=== PATIENT | female | born 1950 | race Caucasian/White ===

== ENCOUNTER 2021-05-10 16:52 | Inpatient (IN) | payer MEDICARE, MEDICAID, SELFPAY ==
--- NOTE | 2021-05-10 16:59 | ED.PSYCH ---
HPI - Psych General Chief Complaint: Psychiatric Symptoms <Fabio Peralta MD - Last Filed: 05/10/21 20:52> Stated Complaint: SECCTION 14 (AGE UNKNOWN) <Fabio Peralta MD - Last Filed: 05/10/21 20:52> Time Seen by Provider: 05/10/21 16:58 <Fabio Peralta MD - Last Filed: 05/10/21 20:52> Source: patient <aFbio Peralta MD - Last Filed: 05/10/21 20:52> Mode of arrival: EMS <Fabio Peralta MD - Last Filed: 05/10/21 20:52> Limitations: no limitations <Fabio Peralta MD - Last Filed: 05/10/21 20:52> History of Present Illness HPI Narrative: suicidal with a plan to throw herself off of a bridge. Patient states that she is itchy and scrathching and cant sleep so she is thinking about suicide. She feels like her isolation got worse and this has caused her to itch. She is not sleeping. She had be on paxil but it did not work. <Fabio Peralta MD - Last Filed: 05/10/21 20:52> MD complaint: suicidal ideation <Fabio Peralta MD - Last Filed: 05/10/21 20:52> Onset (ago): year(s) <Fabio Peralta MD - Last Filed: 05/10/21 20:52> Duration: constant <Fabio Peralta MD - Last Filed: 05/10/21 20:52> History of same: Yes <Fabio Peralta MD - Last Filed: 05/10/21 20:52> Relieving factors: none <Fabio Peralta MD - Last Filed: 05/10/21 20:52> Exacerbating factors: none <Fabio Peralta MD - Last Filed: 05/10/21 20:52> Associated psychiatric symptoms: depression and other (anxiety) <Fabio Peralta MD - Last Filed: 05/10/21 20:52> Associated symptoms: other (itching) <Fabio Peralta MD - Last Filed: 05/10/21 20:52> Related Data Home Medications: Home Medications Medication Instructions Recorded Confirmed doxepin 50 mg capsule 1 cap PO BEDTIME 05/10/21 05/10/21 fluticasone propionate 50 2 spray INTRANASAL DAILY 05/10/21 05/10/21 mcg/actuation nasal spray,suspension omeprazole 20 mg capsule,delayed 1 cap PO QPM 05/10/21 05/10/21 release <Fabio Peralta MD - Last Filed: 05/10/21 20:52> Allergies/Adverse Reactions: Allergies Allergy/AdvReac Type Severity Reaction Status Date / Time [id number] Reductase AdvReac Muscle Verified 05/10/21 18:31 Inhibitor cramps <Fabio Peralta MD - Last Filed: 05/10/21 20:52> Review of Systems Constitutional: Constitutional: Reports no additional constitutional complaints <Fabio Peralta MD - Last Filed: 05/10/21 20:52> Eyes: Eyes: Reports no additional eye complaints <Fabio Peralta MD - Last Filed: 05/10/21 20:52> ENT: Denies dizziness <Fabio Peralta MD - Last Filed: 05/10/21 20:52> Cardiovascular: Cardiovascular: Reports no additional cardiovascular complaints <Fabio Peralta MD - Last Filed: 05/10/21 20:52> Respiratory: Respiratory: Reports as per HPI <Fabio Peralta MD - Last Filed: 05/10/21 20:52> Gastrointestinal: Gastrointestinal: Reports no additional gastrointestinal complaints <Fabio Peralta MD - Last Filed: 05/10/21 20:52> Genitourinary: Genitourinary: Reports no additional female genitourinary complaints <Fabio Peralta MD - Last Filed: 05/10/21 20:52> Musculoskeletal: Musculoskeletal: Reports no additional musculoskeletal complaints <Fabio Peralta MD - Last Filed: 05/10/21 20:52> Integumentary/Breasts: Skin/Breast: Denies rash <Fabio Peralta MD - Last Filed: 05/10/21 20:52> Neurologic: Reports system reviewed and no additional complaints, except as documented, Denies dizziness and Denies Sensory deficit (Neuro) <Fabio Peralta MD - Last Filed: 05/10/21 20:52> Psychiatric: Psychiatric: Denies anxiety <Fabio Peralta MD - Last Filed: 05/10/21 20:52> [facility] Past Medical History Medical History: Medical History (Updated 05/11/21 @ 09:38 by PETRONA Borges) Arthritis Depression GERD (gastroesophageal reflux disease) <Fabio Peralta MD - Last Filed: 05/10/21 20:52> Social History Social History: Social History Advance Directives: No Advance Directives Information Provided: No Healthcare Proxy: No Guardian: No <Fabio Peralta MD - Last Filed: 05/10/21 20:52> Physical Exam Vital Signs: Vital Signs: Last Vital Signs Temp 98.1 F 05/11/21 06:34 Pulse 84 05/11/21 06:34 Resp 16 05/11/21 06:34 BP 140/80 H 05/11/21 06:34 Pulse Ox 100 05/11/21 06:34 BMI result Body Mass Index 26.5 <Faibo Peralta MD - Last Filed: 05/10/21 20:52> Vital Signs: Last Vital Signs Temp 98.1 F 05/11/21 06:34 Pulse 84 05/11/21 06:34 Resp 16 05/11/21 06:34 BP 140/80 H 05/11/21 06:34 Pulse Ox 100 05/11/21 06:34 BMI result Body Mass Index 26.5 <PETRONA Sanford - Last Filed: 05/10/21 21:56> Vital Signs: Last Vital Signs Temp 98.1 F 05/11/21 06:34 Pulse 84 05/11/21 06:34 Resp 16 05/11/21 06:34 BP 140/80 H 05/11/21 06:34 Pulse Ox 100 05/11/21 06:34 BMI result Body Mass Index 26.5 <PETRONA Borges - Last Filed: 05/11/21 09:38> Const: Other: elderly female anxious and hyperactive <Fabio Peralta MD - Last Filed: 05/10/21 20:52> Nutritional Appearance: average body habitus <Fabio Peralta MD - Last Filed: 05/10/21 20:52> Orientation/consciousness: oriented to person and patient oriented x3 <Fabio Peralta MD - Last Filed: 05/10/21 20:52> Limitations: no limitations <Fabio Peralta MD - Last Filed: 05/10/21 20:52> HEENT: Head: Yes normal to inspection <Fabio Peralta MD - Last Filed: 05/10/21 20:52> Ears: external ears normal <Fabio Peralta MD - Last Filed: 05/10/21 20:52> General nose exam: Normal external nose present <Fabio Peralta MD - Last Filed: 05/10/21 20:52> Mouth: Normal oral and palatal mucosa present and oropharynx normal <Fabio Peralta MD - Last Filed: 05/10/21 20:52> Throat: Yes posterior oropharynx normal <Fabio Peralta MD - Last Filed: 05/10/21 20:52> Eyes: General: appearance normal, both eyes and all related structures <Fabio Peralta MD - Last Filed: 05/10/21 20:52> Neck: Other: supple <Fabio Peralta MD - Last Filed: 05/10/21 20:52> Neck: Yes normal visual inspection <Fabio Peralta MD - Last Filed: 05/10/21 20:52> Chest: Chest palpation & inspection: normal inspection of the chest <Fabio Peralta MD - Last Filed: 05/10/21 20:52> Resp: Auscultation: clear to auscultation bilaterally <Fabio Peralta MD - Last Filed: 05/10/21 20:52> Cardio: Jugular venous distension: no JVD <Fabio Peralta MD - Last Filed: 05/10/21 20:52> Rate: regular rate <Fabio Peralta MD - Last Filed: 05/10/21 20:52> Rhythm: regular rhythm <Fabio Peralta MD - Last Filed: 05/10/21 20:52> Heart sounds: S1 normal heart sound present and S2 normal heart sound present <Fabio Peralta MD - Last Filed: 05/10/21 20:52> GI: Inspection: Yes normal to inspection <Fabio Peralta MD - Last Filed: 05/10/21 20:52> Palpation (GI): Soft to palpation, nontender and No hepatosplenomegaly present <Fabio Peralta MD - Last Filed: 05/10/21 20:52> Auscultation: normal bowel sounds <Fabio ePralta MD - Last Filed: 05/10/21 20:52> : General: Yes no CVA tenderness <Fabio Peralta MD - Last Filed: 05/10/21 20:52> Back/Spine/Pelvis: Back: no CVA tenderness <Fabio Peralta MD - Last Filed: 05/10/21 20:52> Skin: General skin exam: no rashes or lesions noted <Fabio Peralta MD - Last Filed: 05/10/21 20:52> Neuro: General: oriented to person and patient oriented x3 <Fabio Peralta MD - Last Filed: 05/10/21 20:52> Cranial nerves: Yes CN's II-XII intact bilaterally <Fabio Peralta MD - Last Filed: 05/10/21 20:52> Motor exam (neuro): 5/5 motor strength present throughout <Fabio Peralta MD - Last Filed: 05/10/21 20:52> Sensory Exam: No Sensory deficit (Neuro) <Fabio Peralta MD - Last Filed: 05/10/21 20:52> Extrem: General: Yes normal to inspection <Fabio Peralta MD - Last Filed: 05/10/21 20:52> Psych: Other: anxious, pressured speech <Fabio Peralta MD - Last Filed: 05/10/21 20:52> Course Reevaluation(s) Reevaluation #1: Patient placed in physician observation at 8:50pm The indication for observation is that the patient needs more time to see if her depression improves or she will need to be admitted. At this time the patient is well developed well nourished, lungs clear, CV RRR, abd nontender, neuro is intact <Fabio Peralta MD - Last Filed: 05/10/21 20:52> Time: 20:52 <Fabio Peralta MD - Last Filed: 05/10/21 20:52> Reevaluation #2: S1 tomorrow. <PETRONA Sanford - Last Filed: 05/10/21 21:56> Reevaluation #3: Physician observation continued. No overnight events. Vital signs remained stable. Home meds reordered. Plan for admission for S1 today. Calm and cooperative. reporting tactile hallucinations yesterday, now improved after low dose zyprexa. Will continue to monitor. <PETRONA Borges - Last Filed: 05/11/21 09:38> Time: 09:33 <PETRONA Borges - Last Filed: 05/11/21 09:38> MDM - Psych Lab Data Result diagrams: : 05/10/21 19:11 05/10/21 17:30 <Fabio Peralta MD - Last Filed: 05/10/21 20:52> Labs: Lab Results 05/10/21 05/10/21 05/10/21 Range/Units 17:09 17:16 17:30 WBC (4.8-10.8) X10*3/uL RBC (4.20-5.50) X10*6/uL Hgb (12.0-16.0) g/dl Hct (37.0-47.0) % MCV (80.0-98.0) fL MCH (27.0-33.0) pg MCHC (31.0-35.0) g/dl RDW (11.0-16.0) % Plt Count (160-400) X10*3/uL MPV (9.4-12.3) fL Immature Gran % (Auto) (0.0-0.4) % Neut % (Auto) (45-73) % Lymph % (Auto) (20-40) % [place] % (Auto) (2-11) % Eos % (Auto) (0-4) % Baso % (Auto) (0-2) % Lymph # (Auto) (1.2-4.9) X10*3/uL [place] # (Auto) (0.1-1.2) X10*3/uL Eos # (Auto) (0.0-0.4) X10*3/uL Baso # (Auto) (0.0-0.2) X10*3/uL Abs Immat Gran (auto) (0.00-0.03) X10*3/uL Absolute Neuts (auto) (2.0-8.3) x10*3/uL Absolute Nucleated RBC (0.0-0.012) X10*3/uL Nucleated RBC % (auto) (0.0-0.2) /100WBC Sodium 138 (135-145) mmol/L Potassium 3.9 (3.3-5.1) mmol/L Chloride 106 (96-108) mmol/L Carbon Dioxide 21 L (22-29) mmol/L Anion Gap 15 (12-20) BUN 11 (9-16) mg/dL Creatinine 0.95 (0.5-1.4) mg/dL Estim Creat Clear Calc 52.4 Estimated GFR 58 Random Glucose 78 (60-115) mg/dL Calcium 10.2 (8.4-10.2) mg/dL Total Bilirubin 0.5 (0.0-1.0) mg/dL AST 15 (5-31) U/L ALT 16 (0-31) U/L Alkaline Phosphatase 63 (39-117) U/L Total Protein 8.1 H (6.5-8.0) g/dL Albumin 4.6 (3.5-5.0) g/dL Urine Color Urine Appearance Urine pH (5.0-8.0) Ur Specific [place] (1.005-1.025) Urine Protein (NEG-TRACE) MG/DL Urine Glucose (UA) (NEG) MG/DL Urine Ketones (NEG) MG/DL Urine Blood (NEG) Urine Nitrite (NEG) Ur Leukocyte Esterase (NEG) Urine RBC (0) /HPF Urine WBC (0-4) /HPF Ur Squamous Epith Cells /LPF Urine Bacteria /LPF Salicylates < 5.0 L (15-30) mg/dL Urine Opiates Screen Not Detected (Not Detect) Urine Fentanyl Screen Not Detected (Not Detect) Acetaminophen < 1 (<30) mcg/mL Ur Barbiturates Screen Not Detected (Not Detect) Ur Phencyclidine Scrn Not Detected (Not Detect) Ur Amphetamines Screen Not Detected (Not Detect) U Benzodiazepines Scrn Not Detected (Not Detect) Urine Cocaine Screen Not Detected (Not Detect) U Marijuana (THC) Screen Not Detected (Not Detect) Ethyl Alcohol mg/dL COVID-19 ([facility]) Negative (Negative) COVID-19 Clin Com See Note 05/10/21 05/10/21 05/10/21 Range/Units 17:30 19:11 Unknown WBC 6.1 (4.8-10.8) X10*3/uL RBC 3.86 L (4.20-5.50) X10*6/uL Hgb 12.1 (12.0-16.0) g/dl Hct 35.3 L (37.0-47.0) % MCV 91.5 (80.0-98.0) fL MCH 31.3 (27.0-33.0) pg MCHC 34.3 (31.0-35.0) g/dl RDW 12.6 (11.0-16.0) % Plt Count 283 (160-400) X10*3/uL MPV 9.6 (9.4-12.3) fL Immature Gran % (Auto) 0.3 (0.0-0.4) % Neut % (Auto) 59.7 (45-73) % Lymph % (Auto) 31.9 (20-40) % [place] % (Auto) 5.8 (2-11) % Eos % (Auto) 1.5 (0-4) % Baso % (Auto) 0.8 (0-2) % Lymph # (Auto) 1.9 (1.2-4.9) X10*3/uL [place] # (Auto) 0.4 (0.1-1.2) X10*3/uL Eos # (Auto) 0.1 (0.0-0.4) X10*3/uL Baso # (Auto) 0.1 (0.0-0.2) X10*3/uL Abs Immat Gran (auto) 0.02 (0.00-0.03) X10*3/uL Absolute Neuts (auto) 3.6 (2.0-8.3) x10*3/uL Absolute Nucleated RBC 0.000 (0.0-0.012) X10*3/uL Nucleated RBC % (auto) 0.0 (0.0-0.2) /100WBC Sodium (135-145) mmol/L Potassium (3.3-5.1) mmol/L Chloride (96-108) mmol/L Carbon Dioxide (22-29) mmol/L Anion Gap (12-20) BUN (9-16) mg/dL Creatinine (0.5-1.4) mg/dL Estim Creat Clear Calc Estimated GFR Random Glucose (60-115) mg/dL Calcium (8.4-10.2) mg/dL Total Bilirubin (0.0-1.0) mg/dL AST (5-31) U/L ALT (0-31) U/L Alkaline Phosphatase (39-117) U/L Total Protein (6.5-8.0) g/dL Albumin (3.5-5.0) g/dL Urine Color STRAW Urine Appearance HAZY Urine pH 6.0 (5.0-8.0) Ur Specific [place] <= 1.005 (1.005-1.025) Urine Protein NEG (NEG-TRACE) MG/DL Urine Glucose (UA) NEG (NEG) MG/DL Urine Ketones 5 (NEG) MG/DL Urine Blood TRACE (NEG) Urine Nitrite NEG (NEG) Ur Leukocyte Esterase NEG (NEG) Urine RBC 0 (0) /HPF Urine WBC 0 (0-4) /HPF Ur Squamous Epith Cells 1+ /LPF Urine Bacteria 1+ /LPF Salicylates (15-30) mg/dL Urine Opiates Screen (Not Detect) Urine Fentanyl Screen (Not Detect) Acetaminophen (<30) mcg/mL Ur Barbiturates Screen (Not Detect) Ur Phencyclidine Scrn (Not Detect) Ur Amphetamines Screen (Not Detect) U Benzodiazepines Scrn (Not Detect) Urine Cocaine Screen (Not Detect) U Marijuana (THC) Screen (Not Detect) Ethyl Alcohol < 10 mg/dL COVID-19 ([facility]) (Negative) COVID-19 Clin Com <Fabio Peralta MD - Last Filed: 05/10/21 20:52> Lab Results 05/10/21 05/10/21 05/10/21 Range/Units 17:09 17:16 17:30 WBC (4.8-10.8) X10*3/uL RBC (4.20-5.50) X10*6/uL Hgb (12.0-16.0) g/dl Hct (37.0-47.0) % MCV (80.0-98.0) fL MCH (27.0-33.0) pg MCHC (31.0-35.0) g/dl RDW (11.0-16.0) % Plt Count (160-400) X10*3/uL MPV (9.4-12.3) fL Immature Gran % (Auto) (0.0-0.4) % Neut % (Auto) (45-73) % Lymph % (Auto) (20-40) % [place] % (Auto) (2-11) % Eos % (Auto) (0-4) % Baso % (Auto) (0-2) % Lymph # (Auto) (1.2-4.9) X10*3/uL [place] # (Auto) (0.1-1.2) X10*3/uL Eos # (Auto) (0.0-0.4) X10*3/uL Baso # (Auto) (0.0-0.2) X10*3/uL Abs Immat Gran (auto) (0.00-0.03) X10*3/uL Absolute Neuts (auto) (2.0-8.3) x10*3/uL Absolute Nucleated RBC (0.0-0.012) X10*3/uL Nucleated RBC % (auto) (0.0-0.2) /100WBC Sodium 138 (135-145) mmol/L Potassium 3.9 (3.3-5.1) mmol/L Chloride 106 (96-108) mmol/L Carbon Dioxide 21 L (22-29) mmol/L Anion Gap 15 (12-20) BUN 11 (9-16) mg/dL Creatinine 0.95 (0.5-1.4) mg/dL Estim Creat Clear Calc 52.4 Estimated GFR 58 Random Glucose 78 (60-115) mg/dL Calcium 10.2 (8.4-10.2) mg/dL Total Bilirubin 0.5 (0.0-1.0) mg/dL AST 15 (5-31) U/L ALT 16 (0-31) U/L Alkaline Phosphatase 63 (39-117) U/L Total Protein 8.1 H (6.5-8.0) g/dL Albumin 4.6 (3.5-5.0) g/dL Urine Color Urine Appearance Urine pH (5.0-8.0) Ur Specific [place] (1.005-1.025) Urine Protein (NEG-TRACE) MG/DL Urine Glucose (UA) (NEG) MG/DL Urine Ketones (NEG) MG/DL Urine Blood (NEG) Urine Nitrite (NEG) Ur Leukocyte Esterase (NEG) Urine RBC (0) /HPF Urine WBC (0-4) /HPF Ur Squamous Epith Cells /LPF Urine Bacteria /LPF Salicylates < 5.0 L (15-30) mg/dL Urine Opiates Screen Not Detected (Not Detect) Urine Fentanyl Screen Not Detected (Not Detect) Acetaminophen < 1 (<30) mcg/mL Ur Barbiturates Screen Not Detected (Not Detect) Ur Phencyclidine Scrn Not Detected (Not Detect) Ur Amphetamines Screen Not Detected (Not Detect) U Benzodiazepines Scrn Not Detected (Not Detect) Urine Cocaine Screen Not Detected (Not Detect) U Marijuana (THC) Screen Not Detected (Not Detect) Ethyl Alcohol mg/dL COVID-19 ([facility]) Negative (Negative) COVID-19 Clin Com See Note 05/10/21 05/10/21 05/10/21 Range/Units 17:30 19:11 Unknown WBC 6.1 (4.8-10.8) X10*3/uL RBC 3.86 L (4.20-5.50) X10*6/uL Hgb 12.1 (12.0-16.0) g/dl Hct 35.3 L (37.0-47.0) % MCV 91.5 (80.0-98.0) fL MCH 31.3 (27.0-33.0) pg MCHC 34.3 (31.0-35.0) g/dl RDW 12.6 (11.0-16.0) % Plt Count 283 (160-400) X10*3/uL MPV 9.6 (9.4-12.3) fL Immature Gran % (Auto) 0.3 (0.0-0.4) % Neut % (Auto) 59.7 (45-73) % Lymph % (Auto) 31.9 (20-40) % [place] % (Auto) 5.8 (2-11) % Eos % (Auto) 1.5 (0-4) % Baso % (Auto) 0.8 (0-2) % Lymph # (Auto) 1.9 (1.2-4.9) X10*3/uL [place] # (Auto) 0.4 (0.1-1.2) X10*3/uL Eos # (Auto) 0.1 (0.0-0.4) X10*3/uL Baso # (Auto) 0.1 (0.0-0.2) X10*3/uL Abs Immat Gran (auto) 0.02 (0.00-0.03) X10*3/uL Absolute Neuts (auto) 3.6 (2.0-8.3) x10*3/uL Absolute Nucleated RBC 0.000 (0.0-0.012) X10*3/uL Nucleated RBC % (auto) 0.0 (0.0-0.2) /100WBC Sodium (135-145) mmol/L Potassium (3.3-5.1) mmol/L Chloride (96-108) mmol/L Carbon Dioxide (22-29) mmol/L Anion Gap (12-20) BUN (9-16) mg/dL Creatinine (0.5-1.4) mg/dL Estim Creat Clear Calc Estimated GFR Random Glucose (60-115) mg/dL Calcium (8.4-10.2) mg/dL Total Bilirubin (0.0-1.0) mg/dL AST (5-31) U/L ALT (0-31) U/L Alkaline Phosphatase (39-117) U/L Total Protein (6.5-8.0) g/dL Albumin (3.5-5.0) g/dL Urine Color STRAW Urine Appearance HAZY Urine pH 6.0 (5.0-8.0) Ur Specific [place] <= 1.005 (1.005-1.025) Urine Protein NEG (NEG-TRACE) MG/DL Urine Glucose (UA) NEG (NEG) MG/DL Urine Ketones 5 (NEG) MG/DL Urine Blood TRACE (NEG) Urine Nitrite NEG (NEG) Ur Leukocyte Esterase NEG (NEG) Urine RBC 0 (0) /HPF Urine WBC 0 (0-4) /HPF Ur Squamous Epith Cells 1+ /LPF Urine Bacteria 1+ /LPF Salicylates (15-30) mg/dL Urine Opiates Screen (Not Detect) Urine Fentanyl Screen (Not Detect) Acetaminophen (<30) mcg/mL Ur Barbiturates Screen (Not Detect) Ur Phencyclidine Scrn (Not Detect) Ur Amphetamines Screen (Not Detect) U Benzodiazepines Scrn (Not Detect) Urine Cocaine Screen (Not Detect) U Marijuana (THC) Screen (Not Detect) Ethyl Alcohol < 10 mg/dL COVID-19 ([facility]) (Negative) COVID-19 Clin Com <PETRONA Sanford - Last Filed: 05/10/21 21:56> Lab Results 05/10/21 05/10/21 05/10/21 Range/Units 17:09 17:16 17:30 WBC (4.8-10.8) X10*3/uL RBC (4.20-5.50) X10*6/uL Hgb (12.0-16.0) g/dl Hct (37.0-47.0) % MCV (80.0-98.0) fL MCH (27.0-33.0) pg MCHC (31.0-35.0) g/dl RDW (11.0-16.0) % Plt Count (160-400) X10*3/uL MPV (9.4-12.3) fL Immature Gran % (Auto) (0.0-0.4) % Neut % (Auto) (45-73) % Lymph % (Auto) (20-40) % [place] % (Auto) (2-11) % Eos % (Auto) (0-4) % Baso % (Auto) (0-2) % Lymph # (Auto) (1.2-4.9) X10*3/uL [place] # (Auto) (0.1-1.2) X10*3/uL Eos # (Auto) (0.0-0.4) X10*3/uL Baso # (Auto) (0.0-0.2) X10*3/uL Abs Immat Gran (auto) (0.00-0.03) X10*3/uL Absolute Neuts (auto) (2.0-8.3) x10*3/uL Absolute Nucleated RBC (0.0-0.012) X10*3/uL Nucleated RBC % (auto) (0.0-0.2) /100WBC Sodium 138 (135-145) mmol/L Potassium 3.9 (3.3-5.1) mmol/L Chloride 106 (96-108) mmol/L Carbon Dioxide 21 L (22-29) mmol/L Anion Gap 15 (12-20) BUN 11 (9-16) mg/dL Creatinine 0.95 (0.5-1.4) mg/dL Estim Creat Clear Calc 52.4 Estimated GFR 58 Random Glucose 78 (60-115) mg/dL Calcium 10.2 (8.4-10.2) mg/dL Total Bilirubin 0.5 (0.0-1.0) mg/dL AST 15 (5-31) U/L ALT 16 (0-31) U/L Alkaline Phosphatase 63 (39-117) U/L Total Protein 8.1 H (6.5-8.0) g/dL Albumin 4.6 (3.5-5.0) g/dL Urine Color Urine Appearance Urine pH (5.0-8.0) Ur Specific [place] (1.005-1.025) Urine Protein (NEG-TRACE) MG/DL Urine Glucose (UA) (NEG) MG/DL Urine Ketones (NEG) MG/DL Urine Blood (NEG) Urine Nitrite (NEG) Ur Leukocyte Esterase (NEG) Urine RBC (0) /HPF Urine WBC (0-4) /HPF Ur Squamous Epith Cells /LPF Urine Bacteria /LPF Salicylates < 5.0 L (15-30) mg/dL Urine Opiates Screen Not Detected (Not Detect) Urine Fentanyl Screen Not Detected (Not Detect) Acetaminophen < 1 (<30) mcg/mL Ur Barbiturates Screen Not Detected (Not Detect) Ur Phencyclidine Scrn Not Detected (Not Detect) Ur Amphetamines Screen Not Detected (Not Detect) U Benzodiazepines Scrn Not Detected (Not Detect) Urine Cocaine Screen Not Detected (Not Detect) U Marijuana (THC) Screen Not Detected (Not Detect) Ethyl Alcohol mg/dL COVID-19 ([facility]) Negative (Negative) COVID-19 Clin Com See Note 05/10/21 05/10/21 05/10/21 Range/Units 17:30 19:11 Unknown WBC 6.1 (4.8-10.8) X10*3/uL RBC 3.86 L (4.20-5.50) X10*6/uL Hgb 12.1 (12.0-16.0) g/dl Hct 35.3 L (37.0-47.0) % MCV 91.5 (80.0-98.0) fL MCH 31.3 (27.0-33.0) pg MCHC 34.3 (31.0-35.0) g/dl RDW 12.6 (11.0-16.0) % Plt Count 283 (160-400) X10*3/uL MPV 9.6 (9.4-12.3) fL Immature Gran % (Auto) 0.3 (0.0-0.4) % Neut % (Auto) 59.7 (45-73) % Lymph % (Auto) 31.9 (20-40) % [place] % (Auto) 5.8 (2-11) % Eos % (Auto) 1.5 (0-4) % Baso % (Auto) 0.8 (0-2) % Lymph # (Auto) 1.9 (1.2-4.9) X10*3/uL [place] # (Auto) 0.4 (0.1-1.2) X10*3/uL Eos # (Auto) 0.1 (0.0-0.4) X10*3/uL Baso # (Auto) 0.1 (0.0-0.2) X10*3/uL Abs Immat Gran (auto) 0.02 (0.00-0.03) X10*3/uL Absolute Neuts (auto) 3.6 (2.0-8.3) x10*3/uL Absolute Nucleated RBC 0.000 (0.0-0.012) X10*3/uL Nucleated RBC % (auto) 0.0 (0.0-0.2) /100WBC Sodium (135-145) mmol/L Potassium (3.3-5.1) mmol/L Chloride (96-108) mmol/L Carbon Dioxide (22-29) mmol/L Anion Gap (12-20) BUN (9-16) mg/dL Creatinine (0.5-1.4) mg/dL Estim Creat Clear Calc Estimated GFR Random Glucose (60-115) mg/dL Calcium (8.4-10.2) mg/dL Total Bilirubin (0.0-1.0) mg/dL AST (5-31) U/L ALT (0-31) U/L Alkaline Phosphatase (39-117) U/L Total Protein (6.5-8.0) g/dL Albumin (3.5-5.0) g/dL Urine Color STRAW Urine Appearance HAZY Urine pH 6.0 (5.0-8.0) Ur Specific [place] <= 1.005 (1.005-1.025) Urine Protein NEG (NEG-TRACE) MG/DL Urine Glucose (UA) NEG (NEG) MG/DL Urine Ketones 5 (NEG) MG/DL Urine Blood TRACE (NEG) Urine Nitrite NEG (NEG) Ur Leukocyte Esterase NEG (NEG) Urine RBC 0 (0) /HPF Urine WBC 0 (0-4) /HPF Ur Squamous Epith Cells 1+ /LPF Urine Bacteria 1+ /LPF Salicylates (15-30) mg/dL Urine Opiates Screen (Not Detect) Urine Fentanyl Screen (Not Detect) Acetaminophen (<30) mcg/mL Ur Barbiturates Screen (Not Detect) Ur Phencyclidine Scrn (Not Detect) Ur Amphetamines Screen (Not Detect) U Benzodiazepines Scrn (Not Detect) Urine Cocaine Screen (Not Detect) U Marijuana (THC) Screen (Not Detect) Ethyl Alcohol < 10 mg/dL COVID-19 (EUNICE) (Negative) COVID-19 Clin Com <PETRONA Borges - Last Filed: 05/11/21 09:38> Discharge Plan Discharge Clinical Impression: Tactile hallucinations <Fabio Peralta MD - Last Filed: 05/10/21 20:52> Patient Disposition: Admitted As Inpatient <Fabio Peralta MD - Last Filed: 05/10/21 20:52> Prescriptions: No Action omeprazole 20 mg capsule,delayed release(DR/EC) 1 cap PO QPM 0RF fluticasone propionate 50 mcg/actuation spray,suspension 2 spray intranasal DAILY 0RF doxepin 50 mg capsule 1 cap PO BEDTIME 0RF <Fabio Peralta MD - Last Filed: 05/10/21 20:52>
[2021-05-10 17:40] LABS: Amphetamine Screen Urine Not Detected (Not Detect); Barbiturates, Urine Not Detected (Not Detect); Benzodiazepines Screen Urine Not Detected (Not Detect); Cannabinoid Screen Urine Not Detected (Not Detect); Cocaine Screen Urine Not Detected (Not Detect); Fentanyl, urine Not Detected (Not Detect); Opiate Screen Urine Not Detected (Not Detect); Phencyclidine Screen Urine Not Detected (Not Detect)
[2021-05-10 17:45] VITALS: BP 155/80; BP 156/98; PULSE 112; PULSE 121; RESP 18; TEMP 37; O2SAT 100; O2SAT 98; BMI 26.5
[2021-05-10 18:02] LABS: Ethanol < 10 mg/dL
[2021-05-10 18:03] LABS: COVID-19 Test Negative (Negative)
[2021-05-10 18:05] VITALS: BP 167/101; PULSE 98; RESP 19; TEMP 37.4; O2SAT 99
[2021-05-10 18:05] LABS: Acetaminophen LAB < 1 mcg/mL (<30); Alanine Aminotransferase 16 U/L (0-31); Albumin Level 4.6 g/dL (3.5-5.0); Alkaline Phosphatase 63 U/L (39-117); Anion Gap 15 (12-20); Aspartate Amino Transferase 15 U/L (5-31); Bilirubin Total 0.5 mg/dL (0.0-1.0); Blood Urea Nitrogen 11 mg/dL (9-16); Calcium 10.2 mg/dL (8.4-10.2); Carbon Dioxide 21 mmol/L (22-29); Chloride 106 mmol/L (96-108); Creatinine Clr Calc Pharmacy 52.4; Estimated Glomerular Filt Rate 58; Glucose Random 78 mg/dL (60-115); Potassium 3.9 mmol/L (3.3-5.1); Salicylate < 5.0 mg/dL (15-30); Sodium 138 mmol/L (135-145); Total Protein 8.1 g/dL (6.5-8.0)
[2021-05-10 19:18] LABS: Basophils Absolute Auto 0.1 X10*3/uL (0.0-0.2); Basophils Percent Auto 0.8 % (0-2); Eosinophils Absolute Auto 0.1 X10*3/uL (0.0-0.4); Eosinophils Percent Auto 1.5 % (0-4); Hematocrit 35.3 % (37.0-47.0); Hemoglobin 12.1 g/dl (12.0-16.0); Imm Gran Abs Auto 0.02 X10*3/uL (0.00-0.03); Imm Gran Pct Auto 0.3 % (0.0-0.4); Lymphocytes Absolute Auto 1.9 X10*3/uL (1.2-4.9); Lymphocytes Percent Auto 31.9 % (20-40); Mean Corpuscular HGB Conc 34.3 g/dl (31.0-35.0); Mean Corpuscular Hemoglobin 31.3 pg (27.0-33.0); Mean Corpuscular Volume 91.5 fL (80.0-98.0); Mean Platelet Volume 9.6 fL (9.4-12.3); Monocytes Absolute Auto 0.4 X10*3/uL (0.1-1.2); Monocytes Percent Auto 5.8 % (2-11); Neutrophils Absolute Auto 3.6 x10*3/uL (2.0-8.3); Neutrophils Percent Auto 59.7 % (45-73); Platelet Count 283 X10*3/uL (160-400); Red Blood Count 3.86 X10*6/uL (4.20-5.50); Red Cell Distribution Width 12.6 % (11.0-16.0); White Blood Count 6.1 X10*3/uL (4.8-10.8)
[2021-05-10 19:22] LABS: Appearance Urine HAZY; Color Urine STRAW; Glucose Urine UA NEG (NEG); Leukocyte Esterase Urine NEG (NEG); Nitrite Urine NEG (NEG); Specific Gravity - Urine <= 1.005 (1.005-1.025); Urine Blood TRACE (NEG); Urine Ketones 5 MG/DL (NEG); Urine Protein NEG (NEG-TRACE)
[2021-05-10 19:31] LABS: Bacteria Urine 1+ /LPF; RBC Urine 0 /HPF (0); Squamous Epithelial Cell Urine 1+ /LPF; WBC Urine 0 /HPF (0-4)
[2021-05-10] MEDS: NaPROXEN 500 MG TABLET PO (19:49)
[2021-05-10 20:23] LABS: MANUAL DIFF FLAG NO
[2021-05-10] MEDS: OLANZapine 2.5 MG TABLET PO (22:11)
--- NOTE | 2021-05-10 22:25 | PC.NURSE ---
Patient is reporting tactile hallucination, olanzapine 2.5 mg administered as ordered/pending effect. Disposition per care team is section 12 inpatient bed search, pre-accepted to S1 for tomorrow
--- NOTE | 2021-05-11 | ECG_ITS ---
Test Reason : med clearance Blood Pressure : / mmHG Vent. Rate : 088 BPM Atrial Rate : 088 BPM P-R Int : 116 ms QRS Dur : 092 ms QT Int : 368 ms P-R-T Axes : 027 051 053 degrees QTc Int : 445 ms Normal sinus rhythm Normal ECG No previous ECGs available Referred By: Fabio Peralta Electronically Signed By:ARIANA GODFREY
[2021-05-11 06:34] VITALS: BP 140/80; PULSE 84; RESP 16; TEMP 36.7; O2SAT 100
--- NOTE | 2021-05-11 06:52 | PC.NURSE ---
Patient slept through the point, no distress observed/reported, no itching reported during overnight shift, disposition per care team is section 12 inpatient bed search, patient pre-accepted to S1, VSS, will continue to monitor.
--- NOTE | 2021-05-11 09:41 | PC.NURSE ---
PT ATE BKFST, WENT BACK TO BED AFTER. AWAITING BED ON S-1
[2021-05-11] MEDS: NaPROXEN 500 MG TABLET PO (10:42)
[2021-05-11] MEDS: Fluticasone Propionate Nasal 16 GM SPRAY 2 SPRAY NOSTRIL-B (10:42)
[2021-05-11] MEDS: hydrOXYzine HCL 50 MG TABLET PO (10:42)
--- NOTE | 2021-05-11 16:59 | HO.PSYADMNOT ---
HPI Date of Service: 05/11/21 Chief Complaint: SECCTION 12 (AGE UNKNOWN) Sources of Information: patient interviewed, chart reviewed and crisis/core team assessment reviewed HPI Subjective Notes: Red Warning and Conditional Voluntary Healthcare Proxy: No Guardianship: No Medical Problems Affecting Mental Status: No Narrative: Milana is a 70 y.o. Female who carries a dx of MDD recurrent, and SERGIO. She self-presented to [facility] ED on 05/10 due to SI with a plan to throw herself off of a bridge. She attributes this to feeling itchy, pruritic skin that has been unresponsive to medication/ treatment x 2 yrs and thus has been unable to sleep. 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 Appetite is poor. Stressors include feeling isolated in the context of COVID-19 pandemic.? 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 Says she has been scratching her face, has a bandaid on her face, feels like there are ?bugs landing on me.?? Of note, a year ago pt reports she had a black spider bite on her face and ?for six months you could see the fang diehl.? Per pt, pruritus is so tormenting that ?if i have this another month I'm gonna jump off a bridge.? Pt says she thinks her itching has to do with being a ?very high energy, anxious? person and that since the start of the pandemic she has had ?nothing to do? and she now has ?energy stored up? with nowhere to go, making her itch. 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 She denies feeling depressed but says ?I dont feel myself? and feels ?frustrated.? She denies hx of hyposomnia, on a ?Im a pretty good sleeper usually.? Pt is talkative but denies racing thoughts. Able to attend to most self care/ ADLs, but has not been cooking, ?its hard to when you?re itching.? Hasnt been able to see a comparison shopper, being treated by PCP. Pt explains she had a previous bout of neurodermatitis 20 years ago after going through menopause and she was given paxil and hydroxyzine, which helped. She retried paxil with her PCP and says she was ?feeling good until my arms and back had a blistering itch,? which was attributed to the paxil. She then trialed Zoloft and doxepin, however says both made her feel dizzy. Says hydoxyzine lost efficacy over time but she has found some benefit on benadryl 25 mg at bedtime. She was able to sleep through the night on zyprexa 2.5 mg, prescribed in the ED BH pod. Also asks for topical Hydrocortisone. Past Psychiatric History: -Hx of IPLOC in 1998 at [facility]. Per pt, she has a hx of ?clinical depression? and had two previous episodes, last was when she was menopausal, prior to that in the after a break up from her fiance. -Hx of previous crisis eval in 2020 due to making passive SI statements due to pruritus, pain. -Past med trials: paxil (initially helpful but says she had a skin reaction), zoloft (dizzy), doxepin (dizzy), ativan (lack of efficacy), hydroxyzine (says lost efficacy over time). Medical Evaluation Reviewed: Yes [facility] Medical History (Updated 05/12/21 @ 13:06 by Hailey Bowie) Arthritis Depression GERD (gastroesophageal reflux disease) Narrative: -Pt has a hx of concussions, had her 3rd concussion in 11/2020 from falling while walking, knocked herself out, was seen at [facility] ED and says she had a head CT done. Other concussions were from skiing accidents. Family History: -Brother: bipolar, completed suicide in the 1970s -Brother: bipolar disorder, stable, in AA -Nephew: hx of IPLOC at [facility], felt claustrophobic, hearing voices. Social History: -Pt resides with her brother in an in-law apartment. Social with neighbors, family, has two best friends. -Pt was raised in [place] by her mother and father. She has3 brothers (2 ) and two sisters. -Graduated High School. 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 Substance History: -ETOH: Says she drinks 4 beers a week -Cannabis: denies Diagnostics Vital Signs (24Hr): Vital Signs - 24 hr 05/10/21 17:45 05/10/21 18:05 05/11/21 06:34 Temperature 98.6 F 99.4 F 98.1 F Pulse Rate 112 H 98 84 Respiratory Rate 18 19 16 Blood Pressure 155/80 H 167/101 H 140/80 H Pulse Oximetry 98 99 100 BMI result Body Mass Index 26.5 Labs Results: 05/10/21 19:11 05/12/21 07:59 Labs: Laboratory Results - last 48 hr 05/10/21 05/10/21 05/10/21 17:09 17:16 17:30 WBC RBC Hgb Hct MCV MCH MCHC RDW Plt Count MPV Immature Gran % (Auto) Neut % (Auto) Lymph % (Auto) [place] % (Auto) Eos % (Auto) Baso % (Auto) Lymph # (Auto) [place] # (Auto) Eos # (Auto) Baso # (Auto) Abs Immat Gran (auto) Absolute Neuts (auto) Absolute Nucleated RBC Nucleated RBC % (auto) Sodium 138 Potassium 3.9 Chloride 106 Carbon Dioxide 21 L Anion Gap 15 BUN 11 Creatinine 0.95 Estim Creat Clear Calc 52.4 Estimated GFR 58 Random Glucose 78 Calcium 10.2 Total Bilirubin 0.5 AST 15 ALT 16 Alkaline Phosphatase 63 Total Protein 8.1 H Albumin 4.6 Urine Color Urine Appearance Urine pH Ur Specific [address] Urine Protein Urine Glucose (UA) Urine Ketones Urine Blood Urine Nitrite Ur Leukocyte Esterase Urine RBC Urine WBC Ur Squamous Epith Cells Urine Bacteria Salicylates < 5.0 L Urine Opiates Screen Not Detected Urine Fentanyl Screen Not Detected Acetaminophen < 1 Ur Barbiturates Screen Not Detected Ur Phencyclidine Scrn Not Detected Ur Amphetamines Screen Not Detected U Benzodiazepines Scrn Not Detected Urine Cocaine Screen Not Detected U Marijuana (THC) Screen Not Detected Ethyl Alcohol COVID-19 (EUNICE) Negative COVID-19 Clin Com See Note 05/10/21 05/10/21 05/10/21 17:30 19:11 Unknown WBC 6.1 RBC 3.86 L Hgb 12.1 Hct 35.3 L MCV 91.5 MCH 31.3 MCHC 34.3 RDW 12.6 Plt Count 283 MPV 9.6 Immature Gran % (Auto) 0.3 Neut % (Auto) 59.7 Lymph % (Auto) 31.9 [place] % (Auto) 5.8 Eos % (Auto) 1.5 Baso % (Auto) 0.8 Lymph # (Auto) 1.9 [place] # (Auto) 0.4 Eos # (Auto) 0.1 Baso # (Auto) 0.1 Abs Immat Gran (auto) 0.02 Absolute Neuts (auto) 3.6 Absolute Nucleated RBC 0.000 Nucleated RBC % (auto) 0.0 Sodium Potassium Chloride Carbon Dioxide Anion Gap BUN Creatinine Estim Creat Clear Calc Estimated GFR Random Glucose Calcium Total Bilirubin AST ALT Alkaline Phosphatase Total Protein Albumin Urine Color STRAW Urine Appearance HAZY Urine pH 6.[address] <= 1.005 Urine Protein NEG Urine Glucose (UA) NEG Urine Ketones 5 Urine Blood TRACE Urine Nitrite NEG Ur Leukocyte Esterase NEG Urine RBC 0 Urine WBC 0 Ur Squamous Epith Cells 1+ Urine Bacteria 1+ Salicylates Urine Opiates Screen Urine Fentanyl Screen Acetaminophen Ur Barbiturates Screen Ur Phencyclidine Scrn Ur Amphetamines Screen U Benzodiazepines Scrn Urine Cocaine Screen U Marijuana (THC) Screen Ethyl Alcohol < 10 COVID-19 (EUNICE) COVID-19 Clin Com Meds/Allergies Meds Home Medications Acetaminophen (Acetaminophen 325 Mg Tablet) 650 mg PO Q6H PRN PRN Reason: Headache/Pain Mild Scale (1-3) Last Admin: 05/11/21 19:48 Dose: 650 mg Documented by: Al Hydroxide/Mg Hydroxide (Magnesium Hydrox/Alum Hydrox 30 Ml Oral.Susp) 30 ml PO Q6H PRN PRN Reason: Heartburn/Nausea Diphenhydramine HCl (Diphenhydramine Hcl 25 Mg Tablet) 25 mg PO BEDTIME [facility] Last Admin: 05/14/21 20:33 Dose: 25 mg Documented by: Escitalopram Oxalate (Escitalopram Oxalate 5 Mg Tablet) 5 mg PO DAILY [facility] Last Admin: 05/15/21 09:20 Dose: 5 mg Documented by: Fluticasone Propionate (Fluticasone Propionate Nasal 16 Gm [place]) 2 spray NOSTRIL-B DAILY [facility] Last Admin: 05/15/21 09:20 Dose: 2 spray Documented by: Hydrocortisone (Hydrocortisone 1 % Cream 28.35 Gm Tube) 1 appl TOPICAL TID PRN PRN Reason: itching Last Admin: 05/14/21 14:56 Dose: 1 appl Documented by: Hydroxyzine HCl (Hydroxyzine Hcl 25 Mg Tablet) 25 mg PO Q6H PRN PRN Reason: itching Last Admin: 05/14/21 14:53 Dose: 25 mg Documented by: Lorazepam (Lorazepam 0.5 Mg Tablet) 0.5 mg PO TID [facility] Last Admin: 05/15/21 09:20 Dose: 0.5 mg Documented by: Magnesium Hydroxide (Milk Of Magnesia 30 Ml Oral.Susp) 30 ml PO DAILY PRN PRN Reason: Constipation Last Admin: 05/15/21 09:54 Dose: 30 ml Documented by: Naproxen (Naproxen 500 Mg Tablet) 500 mg PO Q12H PRN PRN Reason: mild pain Last Admin: 05/13/21 20:38 Dose: 500 mg Documented by: Olanzapine (Olanzapine 2.5 Mg Tablet) 2.5 mg PO Q4H PRN PRN Reason: agitation, anxiety Last Admin: 05/12/21 00:49 Dose: 2.5 mg Documented by: Omeprazole (Omeprazole 20 Mg Capsule.) 20 mg PO DAILY@1630 [facility] Last Admin: 05/14/21 15:54 Dose: 20 mg Documented by: Oxcarbazepine (Oxcarbazepine 300 Mg Tablet) 300 mg PO TID [facility] Last Admin: 05/15/21 09:20 Dose: 300 mg Documented by: Trazodone HCl (Trazodone Hcl 50 Mg Tablet) 50 mg PO BEDTIME PRN PRN Reason: Insomnia Last Admin: 05/12/21 00:49 Dose: 50 mg Documented by: Allergies Allergies Allergy/AdvReac Type Severity Reaction Status Date / Time Incehte-RPJ-BrN Reductase AdvReac Muscle Verified 05/10/21 18:31 Inhibitor cramps Mental Status Exam Mental Status Exam Narrative: A&O. In hospital attire, unkempt appearance, bandaid on face. Good eye contact, attentive. No Tics or Tremors. No abnormal involuntary movements. Calm, cooperative, engaged. Speech is somewhat pressured, talkative, spontaneous, normal volume and prosody. No prolonged speech latency or dysarthria. Mood is ?frustrated,? affect is anxious. Denies SI/SIB/HI upon inquiry. Denies A/VH or delusional thought content, ? of tactile of hallucinations but dx with neurodermatitis, feels bugs crawling on her. Thoughts are preoccupied on itching. No known cognitive or memory impairment. Insight/ Judgment fair and adequate. Assessment & Plan Assessment & Plan (1) MDD (major depressive disorder), recurrent episode, moderate: Status: Acute Code(s): F33.1 - Major depressive disorder, recurrent, moderate Plan Milana is a 70 y.o. Female who carries a dx of MDD recurrent, and SERGIO. She self-presented to [facility] ED on 05/10 due to SI with a plan to throw herself off of a bridge. She attributes this to feeling itchy, pruritic skin that has been unresponsive to medication/ treatment x 2 yrs and thus has been unable to sleep. Says she was diagnosed with neurodermatitis, describes itching as bugs landing. Appetite is poor. Stressors include feeling isolated in the context of COVID-19 pandemic.? Plan: Pt is talkative, describes herself as high energy, suffering from pruritis causing increased anxiety. ?OCD, tactile hallucinations, dx with neurodermatitis. Denies depression. Able to sleep with zyprexa 2.5 mg, will continue zyprexa 2.5 mg Q4H PRN as this may help with anxiety, sleep, and preoccupation. Will trial lexapro 5 QD, as she reports hx of benefit on paxil but has had SE on paxil, zoloft, and doxepin and lexapro is better tolerated than other SSRIs. Will start hydrocortisone topical PRN per pt request. Will continue benadryl 25 mg QHS for sleep, says it helps with itching. Q15 min safety checks, CV Monitor response to medications. Monitor for safety in the milieu. Discharge on stabilization. Patient seen. Chart reviewed. Discussed with team. Obtain collateral contact info?as needed Patient educated on: medication risk/benefits and therapeutic strategies Reason for continued inpatient stay Substantial Risk for: inability to function, rapid decompensation and med/psych decompensation
[2021-05-11 17:00] VITALS: BP 132/86; PULSE 93; RESP 18; TEMP 36.7; O2SAT 98
[2021-05-11] MEDS: Omeprazole 20 MG CAPSULE.DR PO (17:52)
--- NOTE | 2021-05-11 18:47 | PC.ADMIT ---
Patient is 70 year old female admitted to the unit at 16:55 from the ED with DSM 5 diagnoses F41.9 Unspecified Anxiety disorder. Patient is alert and oriented x4, pleasant cooperative and engaged. Patient's speech noted to be pressured however coherent and logical. Patient was observed scratching face and body during 1:1 interaction. Patient reports experiencing tactile hallucinations and describes it as bugs crawling on my skin. pt reports she has always experienced this symptoms and noted it got worse in the past two years. Pt reports feeling hopeless as she has been unable to find relief during past hospital visits which caused her to experience SI thoughts. pt denies SI/HI/AVH. Patient reports she had a psych admit in 1998, family history of SI (brother committed suicide in 1979 d/t anxiety) and alcohol use disorder. pt has a PMH of GERD, and arthritis. Patient reports sleep, nutrition and self care as poor as a result of itching. pt reports she uses face cream, hydrocortisone and benadryl for itching w/no relief. pt ambulates independently w/strong and steady gait, skin appears intact w/ mild redness noted on face. Vital signs on admission WNL and pt appears hemodynamically stable.
[2021-05-11 19:15] VITALS: BP 140/72; PULSE 99; RESP 17; TEMP 36.3; O2SAT 100
[2021-05-11] MEDS: diphenhydrAMINE HCL 25 MG TABLET PO (19:45)
[2021-05-11] MEDS: OLANZapine 2.5 MG TABLET PO (19:45)
[2021-05-11] MEDS: Acetaminophen 325 MG TABLET 650 MG PO (19:48)
[2021-05-12] MEDS: OLANZapine 2.5 MG TABLET PO (00:49)
[2021-05-12] MEDS: traZODone HCL 50 MG TABLET PO (00:49)
[2021-05-12 07:00] VITALS: BP 150/93; PULSE 104; RESP 18; TEMP 36.6; O2SAT 99
[2021-05-12 08:32] LABS: Alanine Aminotransferase 17 U/L (0-31); Albumin Level 4.3 g/dL (3.5-5.0); Alkaline Phosphatase 52 U/L (39-117); Anion Gap 13 (12-20); Aspartate Amino Transferase 14 U/L (5-31); Bilirubin Total 0.3 mg/dL (0.0-1.0); Blood Urea Nitrogen 19 mg/dL (9-16); Calcium 10.1 mg/dL (8.4-10.2); Carbon Dioxide 25 mmol/L (22-29); Chloride 107 mmol/L (96-108); Cholesterol 234 mg/dL; Creatinine Clr Calc Pharmacy 43.7; Estimated Glomerular Filt Rate 47; Glucose Fasting 108 mg/dL (60-99); HDL Cholesterol 52 mg/dL; LDL Cholesterol Calculated 149 mg/dl; Potassium 4.7 mmol/L (3.3-5.1); Sodium 140 mmol/L (135-145); Total Protein 7.5 g/dL (6.5-8.0); Triglycerides 168 mg/dL
[2021-05-12 08:33] LABS: Estimated Average Glucose 97 mg/dL
[2021-05-12 08:51] LABS: Thyroid Stimulating Hormone 2.97 uIU/mL (0.32-4.0)
[2021-05-12] MEDS: Fluticasone Propionate Nasal 16 GM SPRAY 2 SPRAY NOSTRIL-B (08:59)
[2021-05-12] MEDS: Escitalopram Oxalate 5 MG TABLET PO (08:59)
[2021-05-12 09:04] LABS: Folate 11.7 ng/mL (> or = 4.0); Vitamin B12 299 pg/mL (200-900)
[2021-05-12] MEDS: NaPROXEN 500 MG TABLET PO ×2 (09:57→20:05)
--- NOTE | 2021-05-12 12:40 | HO.PSYCHPN ---
Subjective Subjective Date of Service: 05/12/21 Reason For Visit: SECCTION 12 (AGE UNKNOWN) Subjective Notes: Conditional Voluntary Interim History: Pt reports chronic puritus but does report feeling as if bugs crawling on skin. She does report neck pain related to arthritis. She reports getting cortisone shots for that. She reports she had something like this (bug crawling sensation) 20 years ago but went away with paxil and olanzapine. She states it lasted for less than few months back then. This time it has been going on for 2 years. She reports she is very overwhelmed by combination of bugs crawling on skin to itching to brief sharp pain on face and upper extremities to the point that she has had thoughts of hurting herself. Pt noted to have pin rolling tremor- which she reports is fairly new. She reports poor sleep last night due to peer being up and loud. Medication Compliance: Yes Side effects from medications: No Mental Status Exam Mental Status Exam Narrative: Appearance: thin, casually groomed, in no acute distress behavior: cooperative Psychomotor: resting pin rolling tremor more pronounced on left hand Speech: clear, normal rate/rhythm/volume, spontaneous TP: tangential at times but no loose associations TC: overwhelmed by physical condition Mood: anxious Affect: congruent VH/AH/TH: none Delusions: none- Insight/judgment: fair x 2. Memory/cog: alert, oriented x 3. may do MOCA later when mood more stable. Diagnostics Vital Signs (24Hr): Vital Signs - 24 hr 05/11/21 17:00 05/11/21 19:15 05/12/21 07:00 Temperature 98.1 F 97.3 F 97.9 F Pulse Rate 93 99 104 H Respiratory Rate 18 17 18 Blood Pressure 132/86 140/72 H 150/93 H Pulse Oximetry 98 100 99 BMI result Body Mass Index 26.5 Labs Results: 05/10/21 19:11 05/12/21 07:59 Labs: Laboratory Results - last 48 hr 05/10/21 05/10/21 05/10/21 17:09 17:16 17:30 WBC RBC Hgb Hct MCV MCH MCHC RDW Plt Count MPV Immature Gran % (Auto) Neut % (Auto) Lymph % (Auto) [place] % (Auto) Eos % (Auto) Baso % (Auto) Lymph # (Auto) [place] # (Auto) Eos # (Auto) Baso # (Auto) Abs Immat Gran (auto) Absolute Neuts (auto) Absolute Nucleated RBC Nucleated RBC % (auto) Sodium 138 Potassium 3.9 Chloride 106 Carbon Dioxide 21 L Anion Gap 15 BUN 11 Creatinine 0.95 Estim Creat Clear Calc 52.4 Estimated GFR 58 Random Glucose 78 Fasting Glucose Estimat Average Glucose Hemoglobin A1c % Calcium 10.2 Total Bilirubin 0.5 AST 15 ALT 16 Alkaline Phosphatase 63 Total Protein 8.1 H Albumin 4.6 Triglycerides Cholesterol LDL Cholesterol, Calc HDL Cholesterol Vitamin B12 Folate TSH Urine Color Urine Appearance Urine pH Ur Specific [place] Urine Protein Urine Glucose (UA) Urine Ketones Urine Blood Urine Nitrite Ur Leukocyte Esterase Urine RBC Urine WBC Ur Squamous Epith Cells Urine Bacteria Salicylates < 5.0 L Urine Opiates Screen Not Detected Urine Fentanyl Screen Not Detected Acetaminophen < 1 Ur Barbiturates Screen Not Detected Ur Phencyclidine Scrn Not Detected Ur Amphetamines Screen Not Detected U Benzodiazepines Scrn Not Detected Urine Cocaine Screen Not Detected U Marijuana (THC) Screen Not Detected Ethyl Alcohol COVID-19 (EUNICE) Negative COVID-19 Clin Com See Note 05/10/21 05/10/21 05/10/21 17:30 19:11 Unknown WBC 6.1 RBC 3.86 L Hgb 12.1 Hct 35.3 L MCV 91.5 MCH 31.3 MCHC 34.3 RDW 12.6 Plt Count 283 MPV 9.6 Immature Gran % (Auto) 0.3 Neut % (Auto) 59.7 Lymph % (Auto) 31.9 [place] % (Auto) 5.8 Eos % (Auto) 1.5 Baso % (Auto) 0.8 Lymph # (Auto) 1.9 [place] # (Auto) 0.4 Eos # (Auto) 0.1 Baso # (Auto) 0.1 Abs Immat Gran (auto) 0.02 Absolute Neuts (auto) 3.6 Absolute Nucleated RBC 0.000 Nucleated RBC % (auto) 0.0 Sodium Potassium Chloride Carbon Dioxide Anion Gap BUN Creatinine Estim Creat Clear Calc Estimated GFR Random Glucose Fasting Glucose Estimat Average Glucose Hemoglobin A1c % Calcium Total Bilirubin AST ALT Alkaline Phosphatase Total Protein Albumin Triglycerides Cholesterol LDL Cholesterol, Calc HDL Cholesterol Vitamin B12 Folate TSH Urine Color STRAW Urine Appearance HAZY Urine pH 6.0 Ur Specific [place] <= 1.005 Urine Protein NEG Urine Glucose (UA) NEG Urine Ketones 5 Urine Blood TRACE Urine Nitrite NEG Ur Leukocyte Esterase NEG Urine RBC 0 Urine WBC 0 Ur Squamous Epith Cells 1+ Urine Bacteria 1+ Salicylates Urine Opiates Screen Urine Fentanyl Screen Acetaminophen Ur Barbiturates Screen Ur Phencyclidine Scrn Ur Amphetamines Screen U Benzodiazepines Scrn Urine Cocaine Screen U Marijuana (THC) Screen Ethyl Alcohol < 10 COVID-19 (EUNICE) COVID-19 [facility] Com 05/12/21 05/12/21 05/12/21 07:59 07:59 07:59 WBC RBC Hgb Hct MCV MCH MCHC RDW Plt Count MPV Immature Gran % (Auto) Neut % (Auto) Lymph % (Auto) [place] % (Auto) Eos % (Auto) Baso % (Auto) Lymph # (Auto) [place] # (Auto) Eos # (Auto) Baso # (Auto) Abs Immat Gran (auto) Absolute Neuts (auto) Absolute Nucleated RBC Nucleated RBC % (auto) Sodium 140 Potassium 4.7 D Chloride 107 Carbon Dioxide 25 Anion Gap 13 BUN 19 H D Creatinine 1.14 Estim Creat Clear Calc 43.7 Estimated GFR 47 Random Glucose Fasting Glucose 108 H Estimat Average Glucose 97 Hemoglobin A1c % 5.0 Calcium 10.1 Total Bilirubin 0.3 AST 14 ALT 17 Alkaline Phosphatase 52 Total Protein 7.5 Albumin 4.3 Triglycerides 168 Cholesterol 234 LDL Cholesterol, Calc 149 HDL Cholesterol 52 Vitamin B12 299 Folate 11.7 TSH 2.97 Urine Color Urine Appearance Urine pH Ur Specific [place] Urine Protein Urine Glucose (UA) Urine Ketones Urine Blood Urine Nitrite Ur Leukocyte Esterase Urine RBC Urine WBC Ur Squamous Epith Cells Urine Bacteria Salicylates Urine Opiates Screen Urine Fentanyl Screen Acetaminophen Ur Barbiturates Screen Ur Phencyclidine Scrn Ur Amphetamines Screen U Benzodiazepines Scrn Urine Cocaine Screen U Marijuana (THC) Screen Ethyl Alcohol COVID-19 (EUNICE) COVID-19 Clin Com Medications Medications Current Medications Acetaminophen (Acetaminophen 325 Mg Tablet) 650 mg PO Q6H PRN PRN Reason: Headache/Pain Mild Scale (1-3) Last Admin: 05/11/21 19:48 Dose: 650 mg Documented by: Al Hydroxide/Mg Hydroxide (Magnesium Hydrox/Alum Hydrox 30 Ml Oral.Susp) 30 ml PO Q6H PRN PRN Reason: Heartburn/Nausea Diphenhydramine HCl (Diphenhydramine Hcl 25 Mg Tablet) 25 mg PO BEDTIME [facility] Last Admin: 05/11/21 19:45 Dose: 25 mg Documented by: Escitalopram Oxalate (Escitalopram Oxalate 5 Mg Tablet) 5 mg PO DAILY [facility] Last Admin: 05/12/21 08:59 Dose: 5 mg Documented by: Fluticasone Propionate (Fluticasone Propionate Nasal 16 Gm [place]) 2 spray NOSTRIL-B DAILY [facility] Last Admin: 05/12/21 08:59 Dose: 2 spray Documented by: Hydrocortisone (Hydrocortisone 1 % Cream 28.35 Gm Tube) 1 appl TOPICAL TID PRN PRN Reason: itching Lorazepam (Lorazepam 0.5 Mg Tablet) 0.5 mg PO TID [facility] Magnesium Hydroxide (Milk Of Magnesia 30 Ml Oral.Susp) 30 ml PO DAILY PRN PRN Reason: Constipation Naproxen (Naproxen 500 Mg Tablet) 500 mg PO Q12H PRN PRN Reason: mild pain Last Admin: 05/12/21 09:57 Dose: 500 mg Documented by: Olanzapine (Olanzapine 2.5 Mg Tablet) 2.5 mg PO Q4H PRN PRN Reason: agitation, anxiety Last Admin: 05/12/21 00:49 Dose: 2.5 mg Documented by: Omeprazole (Omeprazole 20 Mg Capsule.Dr) 20 mg PO DAILY@1630 [facility] Last Admin: 05/11/21 17:52 Dose: 20 mg Documented by: Oxcarbazepine (Oxcarbazepine 300 Mg Tablet) 300 mg PO TID [facility] Trazodone HCl (Trazodone Hcl 50 Mg Tablet) 50 mg PO BEDTIME PRN PRN Reason: Insomnia Last Admin: 05/12/21 00:49 Dose: 50 mg Documented by: Allergies Allergies Allergy/AdvReac Type Severity Reaction Status Date / Time [id number]-QID-OuD Reductase AdvReac Muscle Verified 05/10/21 18:31 Inhibitor cramps Assessment & Plan Assessment & Plan (1) MDD (major depressive disorder), recurrent episode, moderate: Status: Acute Code(s): F33.1 - Major depressive disorder, recurrent, moderate Plan Mrs. Reynolds is a 70 year-old woman who was brought via EMS from her PCP office after she reported SI with plan to jump off bridge in setting of chronic pruritus although appears to be described more appropriately as bugs crawling on face and upper extremities. It appears most medications targeted possible allergic rx, she did try gabapentin (possible neuropathic), which reports was not helpful- wonder if trileptal for more trigeminal nerve pain/neuropathy) may be more helpful. Pt reports ativan helpful PLAN: 1. Continue lexapro- but would probably recommend SNRI (effexor) or TCA (nortriptyline )that may have some relief in neuropathic pain if any. 2. will start ativan 0.5mg po TID 3. Start trileptal 300mg po TID- mood but may have some relief in bug crawling sensation 4. Consult neurology- re: pin rolling tremor, `neuropathy. 5. Obtain collateral information 6. Aftercare planning. I spent _25 minutes with the patient and/or on the patient floor today, greater than?50% of which was spent counseling/coordinating care. Reason for contiued inpatient stay Substantial Risk for: harm to self
[2021-05-12] MEDS: OXcarbazepine 300 MG TABLET PO ×2 (13:41→20:05)
[2021-05-12] MEDS: Hydrocortisone 1 % Cream 28.35 GM TUBE 1 APPL TOPICAL ×2 (13:43→20:06)
[2021-05-12] MEDS: LORazepam 0.5 MG TABLET PO ×2 (15:47→20:05)
[2021-05-12] MEDS: Omeprazole 20 MG CAPSULE.DR PO (16:46)
[2021-05-12 20:00] VITALS: BP 152/79; PULSE 95; RESP 16; TEMP 36.4; O2SAT 97
[2021-05-12] MEDS: diphenhydrAMINE HCL 25 MG TABLET PO (20:05)
[2021-05-13 06:00] VITALS: BP 156/74; PULSE 94; RESP 16; TEMP 36.6; O2SAT 97
[2021-05-13] MEDS: Escitalopram Oxalate 5 MG TABLET PO (08:44)
[2021-05-13] MEDS: LORazepam 0.5 MG TABLET PO ×3 (08:44→20:23)
[2021-05-13] MEDS: OXcarbazepine 300 MG TABLET PO ×3 (08:44→20:23)
[2021-05-13] MEDS: NaPROXEN 500 MG TABLET PO ×2 (08:58→20:38)
[2021-05-13] MEDS: Fluticasone Propionate Nasal 16 GM SPRAY 2 SPRAY NOSTRIL-B (08:59)
[2021-05-13] MEDS: hydrOXYzine HCL 25 MG TABLET PO (16:00)
[2021-05-13] MEDS: Omeprazole 20 MG CAPSULE.DR PO (16:44)
--- NOTE | 2021-05-13 17:32 | P.PNPSI_ITS ---
Subjective Subjective Date of Service: 05/13/21 Reason For Visit: SECCTION 12 (AGE UNKNOWN) Interim History: Patient seen. Discussed. She reports she slept better last night. She said she had a good day today. She has no SI. She describes her itching like bugs crawling on my skin . Denies SI. Review of Systems Constitutional: Reports no additional constitutional complaints Eyes: Reports no additional eye complaints Denies dizziness Cardiovascular: Reports no additional cardiovascular complaints Respiratory: Reports as per HPI Gastrointestinal: Reports no additional gastrointestinal complaints Musculoskeletal: Reports no additional musculoskeletal complaints Skin/Breast: Denies rash Reports system reviewed and no additional complaints, except as documented, Denies dizziness and Denies Sensory deficit (Neuro) Psychiatric: Denies anxiety Mental Status Exam Mental Status Exam Narrative: Appearance: thin, casually groomed, in no acute distress behavior: cooperative Psychomotor: resting pin rolling tremor more pronounced on left hand Speech: clear, normal rate/rhythm/volume, spontaneous TP: tangential at times but no loose associations TC: overwhelmed by physical condition Mood: anxious Affect: congruent, pleasant VH/AH/TH: none Delusions: none- Insight/judgment: fair x 2. Memory/cog: alert, oriented x 3. may do MOCA later when mood more stable. Diagnostics Vital Signs (24Hr): Vital Signs - 24 hr 05/12/21 20:00 05/13/21 06:00 Temperature 97.5 F 97.8 F Pulse Rate 95 94 Respiratory Rate 16 16 Blood Pressure 152/79 H 156/74 H Pulse Oximetry 97 97 BMI result Body Mass Index 26.5 Labs Results: 05/10/21 19:11 05/12/21 07:59 Labs: Laboratory Results - last 48 hr 05/12/21 05/12/21 05/12/21 07:59 07:59 07:59 Sodium 140 Potassium 4.7 D Chloride 107 Carbon Dioxide 25 Anion Gap 13 BUN 19 H D Creatinine 1.14 Estim Creat Clear Calc 43.7 Estimated GFR 47 Fasting Glucose 108 H Estimat Average Glucose 97 Hemoglobin A1c % 5.0 Calcium 10.1 Total Bilirubin 0.3 AST 14 ALT 17 Alkaline Phosphatase 52 Total Protein 7.5 Albumin 4.3 Triglycerides 168 Cholesterol 234 LDL Cholesterol, Calc 149 HDL Cholesterol 52 Vitamin B12 299 Folate 11.7 TSH 2.97 Medications Medications Current Medications Acetaminophen (Acetaminophen 325 Mg Tablet) 650 mg PO Q6H PRN PRN Reason: Headache/Pain Mild Scale (1-3) Last Admin: 05/11/21 19:48 Dose: 650 mg Documented by: Al Hydroxide/Mg Hydroxide (Magnesium Hydrox/Alum Hydrox 30 Ml Oral.Susp) 30 ml PO Q6H PRN PRN Reason: Heartburn/Nausea Diphenhydramine HCl (Diphenhydramine Hcl 25 Mg Tablet) 25 mg PO BEDTIME [facility] Escitalopram Oxalate (Escitalopram Oxalate 5 Mg Tablet) 5 mg PO DAILY [facility] Last Admin: 05/13/21 08:44 Dose: 5 mg Documented by: Fluticasone Propionate (Fluticasone Propionate Nasal 16 Gm [place]) 2 spray N OSTRIL-B DAILY [facility] Last Admin: 05/13/21 08:59 Dose: 2 spray Documented by: Hydrocortisone (Hydrocortisone 1 % Cream 28.35 Gm Tube) 1 appl TOPICAL TID PRN PRN Reason: itching Last Admin: 05/12/21 20:06 Dose: 1 appl Documented by: Hydroxyzine HCl (Hydroxyzine Hcl 25 Mg Tablet) 25 mg PO Q6H PRN PRN Reason: itching Last Admin: 05/13/21 16:00 Dose: 25 mg Documented by: Lorazepam (Lorazepam 0.5 Mg Tablet) 0.5 mg PO TID [facility] Last Admin: 05/13/21 14:59 Dose: 0.5 mg Documented by: Magnesium Hydroxide (Milk Of Magnesia 30 Ml Oral.Susp) 30 ml PO DAILY PRN PRN Reason: Constipation Naproxen (Naproxen 500 Mg Tablet) 500 mg PO Q12H PRN PRN Reason: mild pain Last Admin: 05/13/21 08:58 Dose: 500 mg Documented by: Olanzapine (Olanzapine 2.5 Mg Tablet) 2.5 mg PO Q4H PRN PRN Reason: agitation, anxiety Last Admin: 05/12/21 00:49 Dose: 2.5 mg Documented by: Omeprazole (Omeprazole 20 Mg Capsule.Dr) 20 mg PO DAILY@1630 [facility] Last Admin: 05/13/21 16:44 Dose: 20 mg Documented by: Oxcarbazepine (Oxcarbazepine 300 Mg Tablet) 300 mg PO TID [facility] Last Admin: 05/13/21 15:00 Dose: 300 mg Documented by: Trazodone HCl (Trazodone Hcl 50 Mg Tablet) 50 mg PO BEDTIME PRN PRN Reason: Insomnia Last Admin: 05/12/21 00:49 Dose: 50 mg Documented by: Allergies Allergies Allergy/AdvReac Type Severity Reaction Status Date / Time [id number] Reductase AdvReac Muscle Verified 05/10/21 18:31 Inhibitor cramps Assessment & Plan Assessment & Plan (1) MDD (major depressive disorder), recurrent episode, moderate: Status: Acute Code(s): F33.1 - Major depressive disorder, recurrent, moderate Plan Mrs. Reynolds is a 70 year-old woman who was brought via EMS from her PCP office after she reported SI with plan to jump off bridge in setting of chronic pruritus although appears to be described more appropriately as bugs crawling on face and upper extremities. It appears most medications targeted possible allergic rx, she did try gabapentin (possible neuropathic), which reports was not helpful- wonder if trileptal for more trigeminal nerve pain/neuropathy) may be more helpful. Pt reports ativan helpful PLAN: 1. Continue lexapro- but would probably recommend SNRI (effexor) or TCA (nortriptyline )that may have some relief in neuropathic pain if any. 2. will start ativan 0.5mg po TID 3. Start trileptal 300mg po TID- mood but may have some relief in bug crawling sensation 4. Consult neurology- re: pin rolling tremor, `neuropathy. 5. Obtain collateral information 6. Aftercare planning. /: Continue same. She seems to have had some relief with the trileptal. No change for now. I spent minutes with the patient and/or on the patient floor today, greater than?50% of which was spent counseling/coordinating care. Reason for contiued inpatient stay Substantial Risk for: inability to function and rapid decompensation
[2021-05-13] MEDS: diphenhydrAMINE HCL 25 MG TABLET PO (20:23)
[2021-05-13 20:43] VITALS: BP 139/74; PULSE 91; RESP 18; TEMP 36.5; O2SAT 98
[2021-05-14 08:14] VITALS: BP 146/78; PULSE 86; RESP 16; TEMP 36.9; O2SAT 98
[2021-05-14] MEDS: Fluticasone Propionate Nasal 16 GM SPRAY 2 SPRAY NOSTRIL-B (08:29)
[2021-05-14] MEDS: Escitalopram Oxalate 5 MG TABLET PO (08:30)
[2021-05-14] MEDS: LORazepam 0.5 MG TABLET PO ×3 (08:30→20:33)
[2021-05-14] MEDS: OXcarbazepine 300 MG TABLET PO ×3 (08:30→20:33)
[2021-05-14] MEDS: hydrOXYzine HCL 25 MG TABLET PO ×2 (08:33→14:53)
--- NOTE | 2021-05-14 10:08 | HO.PSYCHPN ---
Subjective Subjective Date of Service: 05/14/21 Reason For Visit: SECCTION 12 (AGE UNKNOWN) Interim History: Patient seen. Discussed. ?I slept like a baby?. Patient continues to report improvement in her eating and in her sleep. Her mood is stable. She is less depressed and anxious. Complains of intermittent itching which is responsive to Atarax. She is happy with her progress. Denies SI. Review of Systems Constitutional: Reports no additional constitutional complaints Eyes: Reports no additional eye complaints Denies dizziness Cardiovascular: Reports no additional cardiovascular complaints Respiratory: Reports as per HPI Gastrointestinal: Reports no additional gastrointestinal complaints Musculoskeletal: Reports no additional musculoskeletal complaints Skin/Breast: Denies rash Reports system reviewed and no additional complaints, except as documented, Denies dizziness and Denies Sensory deficit (Neuro) Psychiatric: Denies anxiety Mental Status Exam Mental Status Exam Narrative: Appearance: thin, casually groomed, in no acute distress behavior: cooperative Psychomotor: resting pin rolling tremor more pronounced on left hand Speech: clear, normal rate/rhythm/volume, spontaneous TP: tangential at times but no loose associations TC: overwhelmed by physical condition Mood: I am better Affect: congruent, pleasant VH/AH/TH: none Delusions: none- Insight/judgment: fair x 2. Memory/cog: alert, oriented x 3. may do MOCA later when mood more stable. Diagnostics Vital Signs (24Hr): Vital Signs - 24 hr 05/13/21 20:43 05/14/21 08:14 Temperature 97.7 F 98.5 F Pulse Rate 91 86 Respiratory Rate 18 16 Blood Pressure 139/74 146/78 H Pulse Oximetry 98 98 BMI result Body Mass Index 26.5 Labs Results: 05/10/21 19:11 05/12/21 07:59 Medications Medications Current Medications Acetaminophen (Acetaminophen 325 Mg Tablet) 650 mg PO Q6H PRN PRN Reason: Headache/Pain Mild Scale (1-3) Last Admin: 05/11/21 19:48 Dose: 650 mg Documented by: Al Hydroxide/Mg Hydroxide (Magnesium Hydrox/Alum Hydrox 30 Ml Oral.Susp) 30 ml PO Q6H PRN PRN Reason: Heartburn/Nausea Diphenhydramine HCl (Diphenhydramine Hcl 25 Mg Tablet) 25 mg PO BEDTIME [facility] Last Admin: 05/13/21 20:23 Dose: 25 mg Documented by: Escitalopram Oxalate (Escitalopram Oxalate 5 Mg Tablet) 5 mg PO DAILY [facility] Last Admin: 05/14/21 08:30 Dose: 5 mg Documented by: Fluticasone Propionate (Fluticasone Propionate Nasal 16 Gm [place]) 2 spray NOSTRIL-B DAILY [facility] Last Admin: 05/14/21 08:29 Dose: 2 spray Documented by: Hydrocortisone (Hydrocortisone 1 % Cream 28.35 Gm Tube) 1 appl TOPICAL TID PRN PRN Reason: itching Last Admin: 05/12/21 20:06 Dose: 1 appl Documented by: Hydroxyzine HCl (Hydroxyzine Hcl 25 Mg Tablet) 25 mg PO Q6H PRN PRN Reason: itching Last Admin: 05/14/21 08:33 Dose: 25 mg Documented by: Lorazepam (Lorazepam 0.5 Mg Tablet) 0.5 mg PO TID [facility] Last Admin: 05/14/21 08:30 Dose: 0.5 mg Documented by: Magnesium Hydroxide (Milk Of Magnesia 30 Ml Oral.Susp) 30 ml PO DAILY PRN PRN Reason: Constipation Naproxen (Naproxen 500 Mg Tablet) 500 mg PO Q12H PRN PRN Reason: mild pain Last Admin: 05/13/21 20:38 Dose: 500 mg Documented by: Olanzapine (Olanzapine 2.5 Mg Tablet) 2.5 mg PO Q4H PRN PRN Reason: agitation, anxiety Last Admin: 05/12/21 00:49 Dose: 2.5 mg Documented by: Omeprazole (Omeprazole 20 Mg Capsule.Dr) 20 mg PO DAILY@1630 [facility] Last Admin: 05/13/21 16:44 Dose: 20 mg Documented by: Oxcarbazepine (Oxcarbazepine 300 Mg Tablet) 300 mg PO TID [facility] Last Admin: 05/14/21 08:30 Dose: 300 mg Documented by: Trazodone HCl (Trazodone Hcl 50 Mg Tablet) 50 mg PO BEDTIME PRN PRN Reason: Insomnia Last Admin: 05/12/21 00:49 Dose: 50 mg Documented by: Allergies Allergies Allergy/AdvReac Type Severity Reaction Status Date / Time [id number] Reductase AdvReac Muscle Verified 05/10/21 18:31 Inhibitor cramps Assessment & Plan Assessment & Plan (1) MDD (major depressive disorder), recurrent episode, moderate: Status: Acute Code(s): F33.1 - Major depressive disorder, recurrent, moderate Plan Mrs. Reynolds is a 70 year-old woman who was brought via EMS from her PCP office after she reported SI with plan to jump off bridge in setting of chronic pruritus although appears to be described more appropriately as bugs crawling on face and upper extremities. It appears most medications targeted possible allergic rx, she did try gabapentin (possible neuropathic), which reports was not helpful- wonder if trileptal for more trigeminal nerve pain/neuropathy) may be more helpful. Pt reports ativan helpful PLAN: 1. Continue lexapro- but would probably recommend SNRI (effexor) or TCA (nortriptyline )that may have some relief in neuropathic pain if any. 2. will start ativan 0.5mg po TID 3. trileptal 300mg po TID- mood but may have some relief in bug crawling sensation 4. Consult neurology- re: pin rolling tremor, `neuropathy. 5. Obtain collateral information 6. Aftercare planning. 4/2: Continue same. She seems to have had some relief with the trileptal. No change for now. 4/3: Continues to improve. Continue same. I spent minutes with the patient and/or on the patient floor today, greater than?50% of which was spent counseling/coordinating care. Reason for contiued inpatient stay Substantial Risk for: inability to function and rapid decompensation
--- NOTE | 2021-05-14 10:11 | HO.PSYCHPN ---
Subjective Subjective Date of Service: 05/14/21 Reason For Visit: SECCTION 12 (AGE UNKNOWN) Interim History: Patient seen. Discussed. ?I slept like a baby?. Patient continues to report improvement in her eating and in her sleep. Her mood is stable. She is less depressed and anxious. Complains of intermittent itching which is responsive to Atarax. She is happy with her progress. Denies SI. Review of Systems Constitutional: Reports no additional constitutional complaints Eyes: Reports no additional eye complaints Denies dizziness Cardiovascular: Reports no additional cardiovascular complaints Respiratory: Reports as per HPI Gastrointestinal: Reports no additional gastrointestinal complaints Musculoskeletal: Reports no additional musculoskeletal complaints Skin/Breast: Denies rash Reports system reviewed and no additional complaints, except as documented, Denies dizziness and Denies Sensory deficit (Neuro) Psychiatric: Denies anxiety Mental Status Exam Mental Status Exam Narrative: Appearance: thin, casually groomed, in no acute distress behavior: cooperative Psychomotor: resting pin rolling tremor more pronounced on left hand Speech: clear, normal rate/rhythm/volume, spontaneous TP: tangential at times but no loose associations TC: overwhelmed by physical condition Mood: I am better Affect: congruent, pleasant VH/AH/TH: none Delusions: none- Insight/judgment: fair x 2. Memory/cog: alert, oriented x 3. may do MOCA later when mood more stable. Diagnostics Vital Signs (24Hr): Vital Signs - 24 hr 05/13/21 20:43 05/14/21 08:14 Temperature 97.7 F 98.5 F Pulse Rate 91 86 Respiratory Rate 18 16 Blood Pressure 139/74 146/78 H Pulse Oximetry 98 98 BMI result Body Mass Index 26.5 Labs Results: 05/10/21 19:11 05/12/21 07:59 Medications Medications Current Medications Acetaminophen (Acetaminophen 325 Mg Tablet) 650 mg PO Q6H PRN PRN Reason: Headache/Pain Mild Scale (1-3) Last Admin: 05/11/21 19:48 Dose: 650 mg Documented by: Al Hydroxide/Mg Hydroxide (Magnesium Hydrox/Alum Hydrox 30 Ml Oral.Susp) 30 ml PO Q6H PRN PRN Reason: Heartburn/Nausea Diphenhydramine HCl (Diphenhydramine Hcl 25 Mg Tablet) 25 mg PO BEDTIME [facility] Last Admin: 05/13/21 20:23 Dose: 25 mg Documented by: Escitalopram Oxalate (Escitalopram Oxalate 5 Mg Tablet) 5 mg PO DAILY [facility] Last Admin: 05/14/21 08:30 Dose: 5 mg Documented by: Fluticasone Propionate (Fluticasone Propionate Nasal 16 Gm [place]) 2 spray NOSTRIL-B DAILY [facility] Last Admin: 05/14/21 08:29 Dose: 2 spray Documented by: Hydrocortisone (Hydrocortisone 1 % Cream 28.35 Gm Tube) 1 appl TOPICAL TID PRN PRN Reason: itching Last Admin: 05/12/21 20:06 Dose: 1 appl Documented by: Hydroxyzine HCl (Hydroxyzine Hcl 25 Mg Tablet) 25 mg PO Q6H PRN PRN Reason: itching Last Admin: 05/14/21 08:33 Dose: 25 mg Documented by: Lorazepam (Lorazepam 0.5 Mg Tablet) 0.5 mg PO TID [facility] Last Admin: 05/14/21 08:30 Dose: 0.5 mg Documented by: Magnesium Hydroxide (Milk Of Magnesia 30 Ml Oral.Susp) 30 ml PO DAILY PRN PRN Reason: Constipation Naproxen (Naproxen 500 Mg Tablet) 500 mg PO Q12H PRN PRN Reason: mild pain Last Admin: 05/13/21 20:38 Dose: 500 mg Documented by: Olanzapine (Olanzapine 2.5 Mg Tablet) 2.5 mg PO Q4H PRN PRN Reason: agitation, anxiety Last Admin: 05/12/21 00:49 Dose: 2.5 mg Documented by: Omeprazole (Omeprazole 20 Mg Capsule.Dr) 20 mg PO DAILY@1630 [facility] Last Admin: 05/13/21 16:44 Dose: 20 mg Documented by: Oxcarbazepine (Oxcarbazepine 300 Mg Tablet) 300 mg PO TID [facility] Last Admin: 05/14/21 08:30 Dose: 300 mg Documented by: Trazodone HCl (Trazodone Hcl 50 Mg Tablet) 50 mg PO BEDTIME PRN PRN Reason: Insomnia Last Admin: 05/12/21 00:49 Dose: 50 mg Documented by: Allergies Allergies Allergy/AdvReac Type Severity Reaction Status Date / Time [id number]-[id number]-VyJ Reductase AdvReac Muscle Verified 05/10/21 18:31 Inhibitor cramps Assessment & Plan Assessment & Plan (1) MDD (major depressive disorder), recurrent episode, moderate: Status: Acute Code(s): F33.1 - Major depressive disorder, recurrent, moderate Plan Mrs. Reynolds is a 70 year-old woman who was brought via EMS from her PCP office after she reported SI with plan to jump off bridge in setting of chronic pruritus although appears to be described more appropriately as bugs crawling on face and upper extremities. It appears most medications targeted possible allergic rx, she did try gabapentin (possible neuropathic), which reports was not helpful- wonder if trileptal for more trigeminal nerve pain/neuropathy) may be more helpful. Pt reports ativan helpful PLAN: 1. Continue lexapro- but would probably recommend SNRI (effexor) or TCA (nortriptyline )that may have some relief in neuropathic pain if any. 2. will start ativan 0.5mg po TID 3. trileptal 300mg po TID- mood but may have some relief in bug crawling sensation 4. Consult neurology- re: pin rolling tremor, `neuropathy. 5. Obtain collateral information 6. Aftercare planning. 4/2: Continue same. She seems to have had some relief with the trileptal. No change for now. 4/3: Continues to improve. Continue same. I spent minutes with the patient and/or on the patient floor today, greater than?50% of which was spent counseling/coordinating care. Reason for contiued inpatient stay Substantial Risk for: inability to function and rapid decompensation
[2021-05-14] MEDS: Hydrocortisone 1 % Cream 28.35 GM TUBE 1 APPL TOPICAL (14:56)
[2021-05-14] MEDS: Omeprazole 20 MG CAPSULE.DR PO (15:54)
[2021-05-14 20:07] VITALS: BP 159/72; PULSE 109; RESP 16; TEMP 36.4; O2SAT 95
[2021-05-14] MEDS: diphenhydrAMINE HCL 25 MG TABLET PO (20:33)
[2021-05-15 06:00] VITALS: BP 161/81; PULSE 91; RESP 16; TEMP 36.4; O2SAT 97
--- NOTE | 2021-05-15 08:26 | HO.PSYCHPN ---
Subjective Subjective Date of Service: 05/15/21 Reason For Visit: SECCTION 12 (AGE UNKNOWN) Subjective Notes: Conditional Voluntary Interim History: The nursing staff reported the patient has been pleasant and cooperative, isolated but fully compliant with medication treatment. She slept a few hours. On interview the patient reported that she is concerned about the tremors. We are waiting for a neurology consult since it is possible that she also has trigeminal neuralgia. She complained of constipation and requested Colace PRN. Mental Status Exam Mental Status Exam Patient Appearance: Well Grooomed Patient Orientation: Person and Situation Level of Consciousness: Appropriate Patient Behavior: Cooperative Mood Description: Constricted Affect Description: Calm Patient Cognition Impaired: No Speech Pattern: Clear Hallucinations: Tactile Delusions: Paranoid Ideation Thought Process: Distracted and Evasive Thought Content: positive for [place], positive for Obsessional Thoughts and positive for Poverty of Content Judgement: Fair Diagnostics Vital Signs (24Hr): Vital Signs - 24 hr 05/14/21 20:07 Temperature 97.6 F Pulse Rate 109 H Respiratory Rate 16 Blood Pressure 159/72 H Pulse Oximetry 95 BMI result Body Mass Index 26.5 Labs Results: 05/10/21 19:11 05/12/21 07:59 Medications Medications Current Medications Acetaminophen (Acetaminophen 325 Mg Tablet) 650 mg PO Q6H PRN PRN Reason: Headache/Pain Mild Scale (1-3) Last Admin: 05/11/21 19:48 Dose: 650 mg Documented by: Al Hydroxide/Mg Hydroxide (Magnesium Hydrox/Alum Hydrox 30 Ml Oral.Susp) 30 ml PO Q6H PRN PRN Reason: Heartburn/Nausea Diphenhydramine HCl (Diphenhydramine Hcl 25 Mg Tablet) 25 mg PO BEDTIME [facility] Last Admin: 05/14/21 20:33 Dose: 25 mg Documented by: Escitalopram Oxalate (Escitalopram Oxalate 5 Mg Tablet) 5 mg PO DAILY [facility] Last Admin: 05/14/21 08:30 Dose: 5 mg Documented by: Fluticasone Propionate (Fluticasone Propionate Nasal 16 Gm [place]) 2 spray NOSTRIL-B DAILY [facility] Last Admin: 05/14/21 08:29 Dose: 2 spray Documented by: Hydrocortisone (Hydrocortisone 1 % Cream 28.35 Gm Tube) 1 appl TOPICAL TID PRN PRN Reason: itching Last Admin: 05/14/21 14:56 Dose: 1 appl Documented by: Hydroxyzine HCl (Hydroxyzine Hcl 25 Mg Tablet) 25 mg PO Q6H PRN PRN Reason: itching Last Admin: 05/14/21 14:53 Dose: 25 mg Documented by: Lorazepam (Lorazepam 0.5 Mg Tablet) 0.5 mg PO TID [facility] Last Admin: 05/14/21 20:33 Dose: 0.5 mg Documented by: Magnesium Hydroxide (Milk Of Magnesia 30 Ml Oral.Susp) 30 ml PO DAILY PRN PRN Reason: Constipation Naproxen (Naproxen 500 Mg Tablet) 500 mg PO Q12H PRN PRN Reason: mild pain Last Admin: 05/13/21 20:38 Dose: 500 mg Documented by: Olanzapine (Olanzapine 2.5 Mg Tablet) 2.5 mg PO Q4H PRN PRN Reason: agitation, anxiety Last Admin: 05/12/21 00:49 Dose: 2.5 mg Documented by: Omeprazole (Omeprazole 20 Mg Capsule.Dr) 20 mg PO DAILY@1630 [facility] Last Admin: 05/14/21 15:54 Dose: 20 mg Documented by: Oxcarbazepine (Oxcarbazepine 300 Mg Tablet) 300 mg PO TID [facility] Last Admin: 05/14/21 20:33 Dose: 300 mg Documented by: Trazodone HCl (Trazodone Hcl 50 Mg Tablet) 50 mg PO BEDTIME PRN PRN Reason: Insomnia Last Admin: 05/12/21 00:49 Dose: 50 mg Documented by: Allergies Allergies Allergy/AdvReac Type Severity Reaction Status Date / Time [id number]-VyJ Reductase AdvReac Muscle Verified 05/10/21 18:31 Inhibitor cramps Assessment & Plan Assessment & Plan (1) MDD (major depressive disorder), recurrent episode, moderate: Status: Acute Code(s): F33.1 - Major depressive disorder, recurrent, moderate Plan Mrs. Reynolds is a 70 year-old woman who was brought via EMS from her PCP office after she reported SI with plan to jump off bridge in setting of chronic pruritus although appears to be described more appropriately as bugs crawling on face and upper extremities. It appears most medications targeted possible allergic rx, she did try gabapentin (possible neuropathic), which reports was not helpful- wonder if trileptal for more trigeminal nerve pain/neuropathy) may be more helpful. Pt reports ativan helpful PLAN: 1. Continue lexapro- but would probably recommend SNRI (effexor) or TCA (nortriptyline )that may have some relief in neuropathic pain if any. 2. will start ativan 0.5mg po TID 3. trileptal 300mg po TID- mood but may have some relief in bug crawling sensation 4. Consult neurology- re: pin rolling tremor, `neuropathy. 5. Obtain collateral information 6. Aftercare planning. 7. Add PRN Hilary I spent __20____ minutes with the patient and/or on the patient floor today, greater than?50% of which was spent counseling/coordinating care. Reason for contiued inpatient stay Substantial Risk for: inability to function, rapid decompensation and med/psych decompensation
[2021-05-15] MEDS: Escitalopram Oxalate 5 MG TABLET PO (09:20)
[2021-05-15] MEDS: Fluticasone Propionate Nasal 16 GM SPRAY 2 SPRAY NOSTRIL-B (09:20)
[2021-05-15] MEDS: LORazepam 0.5 MG TABLET PO ×3 (09:20→21:59)
[2021-05-15] MEDS: OXcarbazepine 300 MG TABLET PO ×3 (09:20→21:59)
[2021-05-15] MEDS: Milk of Magnesia 30 ML ORAL.SUSP PO (09:54)
[2021-05-15] MEDS: Omeprazole 20 MG CAPSULE.DR PO (15:50)
[2021-05-15] MEDS: hydrOXYzine HCL 25 MG TABLET PO (16:01)
[2021-05-15 18:00] VITALS: BP 136/97; PULSE 83; RESP 18; TEMP 36; O2SAT 96
[2021-05-15] MEDS: Docusate Sodium 100 MG CAPSULE PO (21:59)
[2021-05-15] MEDS: diphenhydrAMINE HCL 25 MG TABLET PO (21:59)
[2021-05-15] MEDS: NaPROXEN 500 MG TABLET PO (22:15)
[2021-05-16 06:00] VITALS: BP 159/82; PULSE 85; RESP 14; TEMP 36.3; O2SAT 98
--- NOTE | 2021-05-16 08:10 | HO.PSYCHPN ---
Subjective Subjective Date of Service: 05/16/21 Reason For Visit: SECCTION 12 (AGE UNKNOWN) Subjective Notes: Conditional Voluntary Interim History: The nursing staff reports the patient has been pleasant and cooperative, fully compliant with treatment. She was seen in the common areas with appropriate behavior with peers. On interview, the patient reports that she is itching again, no side effects with medications, no oversedation. She is feeling a little better., we are waiting for Neurology consult. She feels that Ativan works fairly well. Mental Status Exam Mental Status Exam Patient Appearance: Well Grooomed Patient Orientation: Person and Situation Level of Consciousness: Awake Patient Behavior: Cooperative Mood Description: Withdrawn Affect Description: Constricted Ability to Follow Directions: Good Speech Pattern: Clear Hallucinations: None Delusions: Not Present Thought Process: Linear Thought Content: positive for [place] and positive for Poverty of Content Judgement: Fair Diagnostics Vital Signs (24Hr): Vital Signs - 24 hr 05/15/21 18:00 Temperature 96.8 F Pulse Rate 83 Respiratory Rate 18 Blood Pressure 136/97 H Pulse Oximetry 96 BMI result Body Mass Index 26.5 Labs Results: 05/10/21 19:11 05/12/21 07:59 Medications Medications Current Medications Acetaminophen (Acetaminophen 325 Mg Tablet) 650 mg PO Q6H PRN PRN Reason: Headache/Pain Mild Scale (1-3) Last Admin: 05/11/21 19:48 Dose: 650 mg Documented by: Al Hydroxide/Mg Hydroxide (Magnesium Hydrox/Alum Hydrox 30 Ml Oral.Susp) 30 ml PO Q6H PRN PRN Reason: Heartburn/Nausea Diphenhydramine HCl (Diphenhydramine Hcl 25 Mg Tablet) 25 mg PO BEDTIME [facility] Last Admin: 05/15/21 21:59 Dose: 25 mg Documented by: Docusate Sodium (Docusate Sodium 100 Mg Capsule) 100 mg PO BID PRN PRN Reason: Constipation Last Admin: 05/15/21 21:59 Dose: 100 mg Documented by: Escitalopram Oxalate (Escitalopram Oxalate 5 Mg Tablet) 5 mg PO DAILY [facility] Last Admin: 05/15/21 09:20 Dose: 5 mg Documented by: Fluticasone Propionate (Fluticasone Propionate Nasal 16 Gm [place]) 2 spray NOSTRIL-B DAILY [facility] Last Admin: 05/15/21 09:20 Dose: 2 spray Documented by: Hydrocortisone (Hydrocortisone 1 % Cream 28.35 Gm Tube) 1 appl TOPICAL TID PRN PRN Reason: itching Last Admin: 05/14/21 14:56 Dose: 1 appl Documented by: Hydroxyzine HCl (Hydroxyzine Hcl 25 Mg Tablet) 25 mg PO Q6H PRN PRN Reason: itching Last Admin: 05/15/21 16:01 Dose: 25 mg Documented by: Lorazepam (Lorazepam 0.5 Mg Tablet) 0.5 mg PO TID [facility] Last Admin: 05/15/21 21:59 Dose: 0.5 mg Documented by: Magnesium Hydroxide (Milk Of Magnesia 30 Ml Oral.Susp) 30 ml PO DAILY PRN PRN Reason: Constipation Last Admin: 05/15/21 09:54 Dose: 30 ml Documented by: Naproxen (Naproxen 500 Mg Tablet) 500 mg PO Q12H PRN PRN Reason: mild pain Last Admin: 05/15/21 22:15 Dose: 500 mg Documented by: Olanzapine (Olanzapine 2.5 Mg Tablet) 2.5 mg PO Q4H PRN PRN Reason: agitation, anxiety Last Admin: 05/12/21 00:49 Dose: 2.5 mg Documented by: Omeprazole (Omeprazole 20 Mg Capsule.Dr) 20 mg PO DAILY@1630 [facility] Last Admin: 05/15/21 15:50 Dose: 20 mg Documented by: Oxcarbazepine (Oxcarbazepine 300 Mg Tablet) 300 mg PO TID [facility] Last Admin: 05/15/21 21:59 Dose: 300 mg Documented by: Trazodone HCl (Trazodone Hcl 50 Mg Tablet) 50 mg PO BEDTIME PRN PRN Reason: Insomnia Last Admin: 05/12/21 00:49 Dose: 50 mg Documented by: Allergies Allergies Allergy/AdvReac Type Severity Reaction Status Date / Time [id number] Reductase AdvReac Muscle Verified 05/10/21 18:31 Inhibitor cramps Assessment & Plan Assessment & Plan (1) MDD (major depressive disorder), recurrent episode, moderate: Status: Acute Code(s): F33.1 - Major depressive disorder, recurrent, moderate Plan Mrs. Reynolds is a 70 year-old woman who was brought via EMS from her PCP office after she reported SI with plan to jump off bridge in setting of chronic pruritus although appears to be described more appropriately as bugs crawling on face and upper extremities. It appears most medications targeted possible allergic rx, she did try gabapentin (possible neuropathic), which reports was not helpful- wonder if trileptal for more trigeminal nerve pain/neuropathy) may be more helpful. Pt reports ativan helpful PLAN: 1. Continue same treatment. 2. Follow-up Neurology consult. 3. Increase Gabapentin up to 400 mg po tid I spent ___20___ minutes with the patient and/or on the patient floor today, greater than?50% of which was spent counseling/coordinating care. Reason for contiued inpatient stay Substantial Risk for: inability to function, rapid decompensation and med/psych decompensation
[2021-05-16] MEDS: Fluticasone Propionate Nasal 16 GM SPRAY 2 SPRAY NOSTRIL-B (09:10)
[2021-05-16] MEDS: OXcarbazepine 300 MG TABLET PO ×3 (09:10→20:48)
[2021-05-16] MEDS: LORazepam 0.5 MG TABLET PO ×3 (09:10→20:48)
[2021-05-16] MEDS: Escitalopram Oxalate 5 MG TABLET PO (09:10)
[2021-05-16] MEDS: hydrOXYzine HCL 25 MG TABLET PO (12:38)
[2021-05-16] MEDS: Docusate Sodium 100 MG CAPSULE PO ×2 (12:38→20:54)
[2021-05-16] MEDS: Omeprazole 20 MG CAPSULE.DR PO (15:49)
[2021-05-16] MEDS: NaPROXEN 500 MG TABLET PO (15:54)
[2021-05-16 20:00] VITALS: BP 140/76; PULSE 93; RESP 16; TEMP 36.6; O2SAT 97
[2021-05-16] MEDS: diphenhydrAMINE HCL 25 MG TABLET PO (20:48)
[2021-05-17 08:13] VITALS: BP 150/80; PULSE 79; TEMP 36.2; O2SAT 96
[2021-05-17] MEDS: LORazepam 0.5 MG TABLET PO ×2 (08:41→14:48)
[2021-05-17] MEDS: OXcarbazepine 300 MG TABLET PO ×3 (08:41→20:25)
[2021-05-17] MEDS: Escitalopram Oxalate 5 MG TABLET PO (08:41)
[2021-05-17] MEDS: NaPROXEN 500 MG TABLET PO (10:26)
--- NOTE | 2021-05-17 11:23 | HO.PSYCHPN ---
Subjective Subjective Date of Service: 05/17/21 Reason For Visit: SECCTION 12 (AGE UNKNOWN) Subjective Notes: Conditional Voluntary Interim History: The nursing staff reports the patient has been pleasant and cooperative, she states that she complains with box in her face but there is less EEG. I called Neurology and the consult was already placed and they were going to work on that. On interview the patient denies new symptoms she denies active suicidal ideation. Mental Status Exam Mental Status Exam Patient Appearance: Well Grooomed Patient Orientation: Person and Situation Level of Consciousness: Awake and Follows Commands Patient Behavior: Appropriate and Cooperative Mood Description: Calm and Appropriate Affect Description: Constricted Ability to Follow Directions: Good Speech Pattern: Clear Hallucinations: None Delusions: Not Present Thought Process: Linear Thought Content: positive for Circumstantial Judgement: Fair Diagnostics Vital Signs (24Hr): Vital Signs - 24 hr 05/16/21 20:00 05/17/21 08:13 Temperature 97.9 F 97.1 F Pulse Rate 93 79 Respiratory Rate 16 Blood Pressure 140/76 H 150/80 H Pulse Oximetry 97 96 BMI result Body Mass Index 26.5 Labs Results: 05/10/21 19:11 05/12/21 07:59 Medications Medications Current Medications Acetaminophen (Acetaminophen 325 Mg Tablet) 650 mg PO Q6H PRN PRN Reason: Headache/Pain Mild Scale (1-3) Last Admin: 05/11/21 19:48 Dose: 650 mg Documented by: Al Hydroxide/Mg Hydroxide (Magnesium Hydrox/Alum Hydrox 30 Ml Oral.Susp) 30 ml PO Q6H PRN PRN Reason: Heartburn/Nausea Diphenhydramine HCl (Diphenhydramine Hcl 25 Mg Tablet) 25 mg PO BEDTIME [facility] Last Admin: 05/16/21 20:48 Dose: 25 mg Documented by: Docusate Sodium (Docusate Sodium 100 Mg Capsule) 100 mg PO BID PRN PRN Reason: Constipation Last Admin: 05/16/21 20:54 Dose: 100 mg Documented by: Escitalopram Oxalate (Escitalopram Oxalate 5 Mg Tablet) 5 mg PO DAILY [facility] Last Admin: 05/17/21 08:41 Dose: 5 mg Documented by: Fluticasone Propionate (Fluticasone Propionate Nasal 16 Gm [place]) 2 spray NOSTRIL-B DAILY [facility] Last Admin: 05/17/21 08:41 Dose: Not Given Documented by: Hydrocortisone (Hydrocortisone 1 % Cream 28.35 Gm Tube) 1 appl TOPICAL TID PRN PRN Reason: itching Last Admin: 05/14/21 14:56 Dose: 1 appl Documented by: Hydroxyzine HCl (Hydroxyzine Hcl 25 Mg Tablet) 25 mg PO Q6H PRN PRN Reason: itching Last Admin: 05/16/21 12:38 Dose: 25 mg Documented by: Lorazepam (Lorazepam 0.5 Mg Tablet) 0.5 mg PO TID [facility] Last Admin: 05/17/21 08:41 Dose: 0.5 mg Documented by: Magnesium Hydroxide (Milk Of Magnesia 30 Ml Oral.Susp) 30 ml PO DAILY PRN PRN Reason: Constipation Last Admin: 05/15/21 09:54 Dose: 30 ml Documented by: Naproxen (Naproxen 500 Mg Tablet) 500 mg PO Q12H PRN PRN Reason: mild pain Last Admin: 05/17/21 10:26 Dose: 500 mg Documented by: Olanzapine (Olanzapine 2.5 Mg Tablet) 2.5 mg PO Q4H PRN PRN Reason: agitation, anxiety Last Admin: 05/12/21 00:49 Dose: 2.5 mg Documented by: Omeprazole (Omeprazole 20 Mg Capsule.Dr) 20 mg PO DAILY@1630 [facility] Last Admin: 05/16/21 15:49 Dose: 20 mg Documented by: Oxcarbazepine (Oxcarbazepine 300 Mg Tablet) 300 mg PO TID [facility] Last Admin: 05/17/21 08:41 Dose: 300 mg Documented by: Trazodone HCl (Trazodone Hcl 50 Mg Tablet) 50 mg PO BEDTIME PRN PRN Reason: Insomnia Last Admin: 05/12/21 00:49 Dose: 50 mg Documented by: Allergies Allergies Allergy/AdvReac Type Severity Reaction Status Date / Time [id number] Reductase AdvReac Muscle Verified 05/10/21 18:31 Inhibitor cramps Assessment & Plan Assessment & Plan (1) MDD (major depressive disorder), recurrent episode, moderate: Status: Acute Code(s): F33.1 - Major depressive disorder, recurrent, moderate Plan Mrs. Reynolds is a 70 year-old woman who was brought via EMS from her PCP office after she reported SI with plan to jump off bridge in setting of chronic pruritus although appears to be described more appropriately as bugs crawling on face and upper extremities. It appears most medications targeted possible allergic rx, she did try gabapentin (possible neuropathic), which reports was not helpful- wonder if trileptal for more trigeminal nerve pain/neuropathy) may be more helpful. Pt reports ativan helpful PLAN: 1. Continue same treatment. 2. Follow-up Neurology consult. I spent __20____ minutes with the patient and/or on the patient floor today, greater than?50% of which was spent counseling/coordinating care. Reason for contiued inpatient stay Substantial Risk for: inability to function, rapid decompensation and med/psych decompensation
[2021-05-17] MEDS: hydrOXYzine HCL 25 MG TABLET PO (14:52)
[2021-05-17] MEDS: Omeprazole 20 MG CAPSULE.DR PO (16:31)
--- NOTE | 2021-05-17 16:47 | PM.NEUROCN ---
History of Present Illness Data of Consult Service Date: 05/17/21 Primary Care Provider: Anita Menchaca MD HPI Reason for consult: Creepy crawly paresthesias over the entire body face scalp for 2 years 70 y.o. Female who with History of major recurrent depression self-presented to [facility] ED on 05/10 due to SI with a plan to throw herself off of a bridge. She attributes this to feeling itchy, pruritic skin that has been unresponsive to medication/ treatment x 2 yrs and thus has been unable to sleep. Pt describes itching as all over her body but specifically more on her face. 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 Appetite is poor. Stressors include feeling isolated in the context of COVID-19 pandemic.? 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 GI: No c/o Nausea, Vomiting, diarrhea, constipation or heartburn Constitutional: Constitutional: Reports no additional constitutional complaints Eyes: Eyes: Reports no additional eye complaints ENT: Denies dizziness Cardiovascular: Cardiovascular: Reports no additional cardiovascular complaints Respiratory: Respiratory: Reports as per HPI Gastrointestinal: Gastrointestinal: Reports no additional gastrointestinal complaints Musculoskeletal: Musculoskeletal: Reports no additional musculoskeletal complaints Integumentary/Breasts: Skin/Breast: Denies rash Neurologic: Reports system reviewed and no additional complaints, except as documented, Denies dizziness and Denies Sensory deficit (Neuro) Psychiatric: Psychiatric: Denies anxiety PMFSH Past Medical History Medical History (Updated 05/17/21 @ 16:50 by Brandon Copeland MD) Arthritis Depression GERD (gastroesophageal reflux disease) Social History Social History Household Members: Family Housing: Other Housing Other:: in-law apartment Do you presently have visiting nurse or other home services: No Patient Tobacco Use Status: Current someday Tobacco user Tobacco use type: Cigarette Smoked in Last 30 Days: Yes Patient Interested in Nicotine Replacement: No ( pt was asked if she wanted nicotine, pt declined. ) Patient Given Instructions on How to Stop Smoking: Yes Date Education Initiated: 05/11/21 Second Hand Smoke Exposure: No Use of substances other than those prescribed or required for medical reasons: No Currently Displaying Signs/Symptoms of Drug Intoxication Withdrawal: No Have you been hit, kicked, punched, or otherwise hurt by someone within the past year? If so, by whom?: No Do you feel safe in your current relationship?: No Current Relationship Is there a partner from a previous relationship who is making you feel unsafe now?: No Are you made to feel afraid or neglected: No Advance Directives: No Advance Directives Information Provided: No Healthcare Proxy: No Guardian: No Do you have thoughts of harming others: None Do you have a plan to hurt others: No Plan Recently lost weight without trying: No Eating poorly because of decreased appetite: Yes Nutrition Risks: No Nutritional Risk service: No Sexual orientation: Straight/Heterosexual Meds Allergies Allergy/AdvReac Type Severity Reaction Status Date / Time [id number] Reductase AdvReac Muscle Verified 05/10/21 18:31 Inhibitor cramps Active Medications: Current Medications Acetaminophen (Acetaminophen 325 Mg Tablet) 650 mg PO Q6H PRN PRN Reason: Headache/Pain Mild Scale (1-3) Last Admin: 05/11/21 19:48 Dose: 650 mg Documented by: Al Hydroxide/Mg Hydroxide (Magnesium Hydrox/Alum Hydrox 30 Ml Oral.Susp) 30 ml PO Q6H PRN PRN Reason: Heartburn/Nausea Diphenhydramine HCl (Diphenhydramine Hcl 25 Mg Tablet) 25 mg PO BEDTIME [facility] Last Admin: 05/16/21 20:48 Dose: 25 mg Documented by: Docusate Sodium (Docusate Sodium 100 Mg Capsule) 100 mg PO BID PRN PRN Reason: Constipation Last Admin: 05/16/21 20:54 Dose: 100 mg Documented by: Escitalopram Oxalate (Escitalopram Oxalate 5 Mg Tablet) 5 mg PO DAILY [facility] Last Admin: 05/17/21 08:41 Dose: 5 mg Documented by: Fluticasone Propionate (Fluticasone Propionate Nasal 16 Gm [place]) 2 spray NOSTRIL-B DAILY [facility] Last Admin: 05/17/21 08:41 Dose: Not Given Documented by: Hydrocortisone (Hydrocortisone 1 % Cream 28.35 Gm Tube) 1 appl TOPICAL TID PRN PRN Reason: itching Last Admin: 05/14/21 14:56 Dose: 1 appl Documented by: Hydroxyzine HCl (Hydroxyzine Hcl 25 Mg Tablet) 25 mg PO Q6H PRN PRN Reason: itching Last Admin: 05/17/21 14:52 Dose: 25 mg Documented by: Magnesium Hydroxide (Milk Of Magnesia 30 Ml Oral.Susp) 30 ml PO DAILY PRN PRN Reason: Constipation Last Admin: 05/15/21 09:54 Dose: 30 ml Documented by: Naproxen (Naproxen 500 Mg Tablet) 500 mg PO Q12H PRN PRN Reason: mild pain Last Admin: 05/17/21 10:26 Dose: 500 mg Documented by: Olanzapine (Olanzapine 2.5 Mg Tablet) 2.5 mg PO Q4H PRN PRN Reason: agitation, anxiety Last Admin: 05/12/21 00:49 Dose: 2.5 mg Documented by: Omeprazole (Omeprazole 20 Mg Capsule.Dr) 20 mg PO DAILY@1630 [facility] Last Admin: 05/17/21 16:31 Dose: 20 mg Documented by: Oxcarbazepine (Oxcarbazepine 300 Mg Tablet) 300 mg PO TID [facility] Last Admin: 05/17/21 14:48 Dose: 300 mg Documented by: Trazodone HCl (Trazodone Hcl 50 Mg Tablet) 50 mg PO BEDTIME PRN PRN Reason: Insomnia Last Admin: 05/12/21 00:49 Dose: 50 mg Documented by: Home Medications Medication Instructions Recorded Confirmed Last Taken Type doxepin 50 mg capsule 1 cap PO BEDTIME 05/10/21 05/10/21 Unknown History fluticasone propionate 50 2 spray INTRANASAL DAILY 05/10/21 05/10/21 Unknown History mcg/actuation nasal spray,suspension omeprazole 20 mg capsule,delayed 1 cap PO QPM 05/10/21 05/10/21 Unknown History release Physical Exam Vital Signs: Vital Signs: Last Vital Signs Temp 97.1 F 05/17/21 08:13 Pulse 79 05/17/21 08:13 Resp 16 05/16/21 20:00 BP 150/80 H 05/17/21 08:13 Pulse Ox 96 05/17/21 08:13 BMI result Body Mass Index 26.5 Const: Other: elderly female anxious and hyperactive Nutritional Appearance: average body habitus Orientation/consciousness: oriented to person and patient oriented x3 Limitations: no limitations HEENT: Head: Yes normal to inspection Ears: external ears normal General nose exam: Normal external nose present Mouth: Normal oral and palatal mucosa present and oropharynx normal Throat: Yes posterior oropharynx normal Eyes: General: appearance normal, both eyes and all related structures Neck: Other: supple Neck: Yes normal visual inspection Chest: Chest palpation & inspection: normal inspection of the chest Resp: Auscultation: clear to auscultation bilaterally Cardio: Jugular venous distension: no JVD Rate: regular rate Rhythm: regular rhythm Heart sounds: S1 normal heart sound present and S2 normal heart sound present GI: Inspection: Yes normal to inspection Palpation (GI): Soft to palpation, nontender and No hepatosplenomegaly present Auscultation: normal bowel sounds : General: Yes no CVA tenderness Back/Spine/Pelvis: Back: no CVA tenderness Skin: General skin exam: no rashes or lesions noted Neuro: Other: Normal neurological examination no evidence of neuropathy General: oriented to person and patient oriented x3 Cranial nerves: Yes CN's II-XII intact bilaterally Motor exam (neuro): 5/5 motor strength present throughout Sensory Exam: No Sensory deficit (Neuro) Extrem: General: Yes normal to inspection Psych: Other: anxious, pressured speech Results Labs CBC & Chem 7: 05/10/21 19:11 05/12/21 07:59 Assessment and Plan (1) MDD (major depressive disorder), recurrent episode, moderate: Status: Acute (2) Paresthesia: Status: Acute This could be some form of central sensitization compounded by her anxiety and depression. I would recommend using hydroxyzine 25 mg along with gabapentin 300 mg at bedtime with additional hydroxyzine 25 mg every 8 hours when necessary Plan Mrs. Reynolds is a 70 year-old woman who was brought via EMS from her PCP office after she reported SI with plan to jump off bridge in setting of chronic pruritus although appears to be described more appropriately as bugs crawling on face and upper extremities. It appears most medications targeted possible allergic rx, she did try gabapentin (possible neuropathic), which reports was not helpful- wonder if trileptal for more trigeminal nerve pain/neuropathy) may be more helpful. Pt reports ativan helpful PLAN: 1. Continue same treatment. 2. Follow-up Neurology consult. Procedures Date of Service Date of Service: 05/17/21
[2021-05-17] MEDS: Milk of Magnesia 30 ML ORAL.SUSP PO (17:26)
[2021-05-17] MEDS: Docusate Sodium 100 MG CAPSULE PO (17:28)
[2021-05-17] MEDS: diphenhydrAMINE HCL 25 MG TABLET PO (20:27)
[2021-05-17 20:30] VITALS: BP 151/73; PULSE 82; RESP 16; TEMP 36.6; O2SAT 97
[2021-05-18 06:00] VITALS: BP 140/72; PULSE 71; RESP 17; TEMP 36.3; O2SAT 98
[2021-05-18] MEDS: OXcarbazepine 300 MG TABLET PO ×3 (08:23→20:33)
[2021-05-18] MEDS: Escitalopram Oxalate 5 MG TABLET PO (08:23)
[2021-05-18] MEDS: Milk of Magnesia 30 ML ORAL.SUSP PO (08:28)
[2021-05-18] MEDS: hydrOXYzine HCL 25 MG TABLET PO (08:28)
[2021-05-18] MEDS: Docusate Sodium 100 MG CAPSULE PO (08:29)
[2021-05-18] MEDS: OLANZapine 2.5 MG TABLET PO (12:17)
[2021-05-18 12:22] VITALS: BMI 24.4
--- NOTE | 2021-05-18 14:01 | HO.PSYCHPN ---
Subjective Subjective Date of Service: 05/18/21 Reason For Visit: SECCTION 12 (AGE UNKNOWN) Subjective Notes: Conditional Voluntary Interim History: The nursing staff reports the patient slept well, she complains of a sporadic pruritos on her arms and legs , sporadic paresthesias On interview, the patient denies active suicidal ideation she states that her mood has improved but still she has pruritus. Neurology consult is suggested to use Atarax and gabapentin. We discussed with the patient if she wants to restart Atarax and gabapentin and she agreed. Mental Status Exam Mental Status Exam Patient Appearance: Well Grooomed Patient Orientation: Person and Situation Level of Consciousness: Awake Patient Behavior: Cooperative Mood Description: Appropriate and Depressed Affect Description: Constricted Patient Cognition Impaired: No Ability to Follow Directions: Good Speech Pattern: Clear Hallucinations: None Delusions: Bizarre Thought Process: Linear Thought Content: positive for Circumstantial Judgement: Fair Diagnostics Vital Signs (24Hr): Vital Signs - 24 hr 05/17/21 20:30 05/18/21 06:00 Temperature 97.9 F 97.3 F Pulse Rate 82 71 Respiratory Rate 16 17 Blood Pressure 151/73 H 140/72 H Pulse Oximetry 97 98 BMI result Body Mass Index 24.4 Labs Results: 05/10/21 19:11 05/12/21 07:59 Medications Medications Current Medications Acetaminophen (Acetaminophen 325 Mg Tablet) 650 mg PO Q6H PRN PRN Reason: Headache/Pain Mild Scale (1-3) Last Admin: 05/11/21 19:48 Dose: 650 mg Documented by: Al Hydroxide/Mg Hydroxide (Magnesium Hydrox/Alum Hydrox 30 Ml Oral.Susp) 30 ml PO Q6H PRN PRN Reason: Heartburn/Nausea Diphenhydramine HCl (Diphenhydramine Hcl 25 Mg Tablet) 25 mg PO BEDTIME [facility] Last Admin: 05/17/21 20:27 Dose: 25 mg Documented by: Docusate Sodium (Docusate Sodium 100 Mg Capsule) 100 mg PO BID PRN PRN Reason: Constipation Last Admin: 05/18/21 08:29 Dose: 100 mg Documented by: Escitalopram Oxalate (Escitalopram Oxalate 5 Mg Tablet) 5 mg PO DAILY [facility] Last Admin: 05/18/21 08:23 Dose: 5 mg Documented by: Fluticasone Propionate (Fluticasone Propionate Nasal 16 Gm [place]) 2 spray NOSTRIL-B DAILY [facility] Last Admin: 05/18/21 08:40 Dose: Not Given Documented by: Hydrocortisone (Hydrocortisone 1 % Cream 28.35 Gm Tube) 1 appl TOPICAL TID PRN PRN Reason: itching Last Admin: 05/14/21 14:56 Dose: 1 appl Documented by: Hydroxyzine HCl (Hydroxyzine Hcl 25 Mg Tablet) 25 mg PO Q6H PRN PRN Reason: itching Last Admin: 05/18/21 08:28 Dose: 25 mg Documented by: Magnesium Hydroxide (Milk Of Magnesia 30 Ml Oral.Susp) 30 ml PO DAILY PRN PRN Reason: Constipation Last Admin: 05/18/21 08:28 Dose: 30 ml Documented by: Naproxen (Naproxen 500 Mg Tablet) 500 mg PO Q12H PRN PRN Reason: mild pain Last Admin: 05/17/21 10:26 Dose: 500 mg Documented by: Olanzapine (Olanzapine 2.5 Mg Tablet) 2.5 mg PO Q4H PRN PRN Reason: agitation, anxiety Last Admin: 05/18/21 12:17 Dose: 2.5 mg Documented by: Omeprazole (Omeprazole 20 Mg Capsule.Dr) 20 mg PO DAILY@1630 [facility] Last Admin: 05/17/21 16:31 Dose: 20 mg Documented by: Oxcarbazepine (Oxcarbazepine 300 Mg Tablet) 300 mg PO TID [facility] Last Admin: 05/18/21 08:23 Dose: 300 mg Documented by: Trazodone HCl (Trazodone Hcl 50 Mg Tablet) 50 mg PO BEDTIME PRN PRN Reason: Insomnia Last Admin: 05/12/21 00:49 Dose: 50 mg Documented by: Allergies Allergies Allergy/AdvReac Type Severity Reaction Status Date / Time [id number]-MhR Reductase AdvReac Muscle Verified 05/10/21 18:31 Inhibitor cramps Assessment & Plan Assessment & Plan (1) MDD (major depressive disorder), recurrent episode, moderate: Status: Acute Code(s): F33.1 - Major depressive disorder, recurrent, moderate (2) Paresthesia: Status: Acute Code(s): R20.2 - Paresthesia of skin Assessment and Plan: This could be some form of central sensitization compounded by her anxiety and depression. I would recommend using hydroxyzine 25 mg along with gabapentin 300 mg at bedtime with additional hydroxyzine 25 mg every 8 hours when necessary Plan Mrs. Reynolds is a 70 year-old woman who was brought via EMS from her PCP office after she reported SI with plan to jump off bridge in setting of chronic pruritus although appears to be described more appropriately as bugs crawling on face and upper extremities. It appears most medications targeted possible allergic rx, she did try gabapentin (possible neuropathic), which reports was not helpful- wonder if trileptal for more trigeminal nerve pain/neuropathy) may be more helpful. Pt reports ativan helpful PLAN: 1. Continue same treatment. 2. Follow-up Neurology consult. We will start gabapentin 100 mg p.o. b.i.d. and Atarax 10 mg p.o. t.i.d.. I spent ___20___ minutes with the patient and/or on the patient floor today, greater than?50% of which was spent counseling/coordinating care. Informed Consent: understands Reason for contiued inpatient stay Substantial Risk for: inability to function, rapid decompensation and med/psych decompensation
[2021-05-18] MEDS: Gabapentin 100 MG CAPSULE PO ×2 (15:57→20:33)
[2021-05-18] MEDS: Omeprazole 20 MG CAPSULE.DR PO (15:58)
[2021-05-18] MEDS: NaPROXEN 500 MG TABLET PO (17:38)
[2021-05-18] MEDS: hydrOXYzine HCL 10 MG TABLET PO ×2 (17:38→20:33)
[2021-05-18] MEDS: Hydrocortisone 1 % Cream 28.35 GM TUBE 1 APPL TOPICAL (17:48)
[2021-05-18 18:00] VITALS: BP 118/65; PULSE 77; TEMP 36.7; O2SAT 97
[2021-05-19 06:00] VITALS: BP 128/80; PULSE 82; RESP 16; TEMP 36.6; O2SAT 97
[2021-05-19] MEDS: Gabapentin 100 MG CAPSULE PO (08:04)
[2021-05-19] MEDS: Fluticasone Propionate Nasal 16 GM SPRAY 2 SPRAY NOSTRIL-B (08:04)
[2021-05-19] MEDS: Escitalopram Oxalate 5 MG TABLET PO (08:04)
[2021-05-19] MEDS: hydrOXYzine HCL 10 MG TABLET PO ×3 (08:04→20:22)
[2021-05-19] MEDS: OXcarbazepine 300 MG TABLET PO ×3 (08:04→20:22)
[2021-05-19] MEDS: NaPROXEN 500 MG TABLET PO ×2 (08:08→20:22)
--- NOTE | 2021-05-19 14:09 | HO.PSYCHPN ---
Subjective Subjective Date of Service: 05/19/21 Reason For Visit: SECCTION 12 (AGE UNKNOWN) Subjective Notes: Conditional Voluntary Interim History: The nursing staff reported the patient reported improvement of itchiness sings gabapentin was started. On interview the patient reports over-sedation with gabapentin 100 3 times a day. We discussed options she agreed to change Gabapentin at night. Mental Status Exam Mental Status Exam Patient Appearance: Well Grooomed Patient Orientation: Person and Situation Level of Consciousness: Awake Patient Behavior: Cooperative Mood Description: Depressed Affect Description: Constricted Patient Cognition Impaired: No Ability to Follow Directions: Good Speech Pattern: Clear Hallucinations: None Delusions: Not Present Thought Process: Linear Thought Content: positive for Circumstantial Judgement: Fair Diagnostics Vital Signs (24Hr): Vital Signs - 24 hr 05/18/21 18:00 05/19/21 06:00 Temperature 98.0 F 97.9 F Pulse Rate 77 82 Respiratory Rate 16 Blood Pressure 118/65 128/80 Pulse Oximetry 97 97 BMI result Body Mass Index 24.4 Labs Results: 05/10/21 19:11 05/12/21 07:59 Medications Medications Current Medications Acetaminophen (Acetaminophen 325 Mg Tablet) 650 mg PO Q6H PRN PRN Reason: Headache/Pain Mild Scale (1-3) Last Admin: 05/11/21 19:48 Dose: 650 mg Documented by: Al Hydroxide/Mg Hydroxide (Magnesium Hydrox/Alum Hydrox 30 Ml Oral.Susp) 30 ml PO Q6H PRN PRN Reason: Heartburn/Nausea Docusate Sodium (Docusate Sodium 100 Mg Capsule) 100 mg PO BID PRN PRN Reason: Constipation Last Admin: 05/18/21 08:29 Dose: 100 mg Documented by: Escitalopram Oxalate (Escitalopram Oxalate 5 Mg Tablet) 5 mg PO DAILY [facility] Last Admin: 05/19/21 08:04 Dose: 5 mg Documented by: Fluticasone Propionate (Fluticasone Propionate Nasal 16 Gm [place]) 2 spray NOSTRIL-B DAILY [facility] Last Admin: 05/19/21 08:04 Dose: 2 spray Documented by: Gabapentin (Gabapentin 100 Mg Capsule) 100 mg PO TID [facility] Last Admin: 05/19/21 08:04 Dose: 100 mg Documented by: Hydrocortisone (Hydrocortisone 1 % Cream 28.35 Gm Tube) 1 appl TOPICAL TID PRN PRN Reason: itching Last Admin: 05/18/21 17:48 Dose: 1 appl Documented by: Hydroxyzine HCl (Hydroxyzine Hcl 25 Mg Tablet) 25 mg PO Q6H PRN PRN Reason: itching Last Admin: 05/18/21 08:28 Dose: 25 mg Documented by: Hydroxyzine HCl (Hydroxyzine Hcl 10 Mg Tablet) 10 mg PO TID [facility] Last Admin: 05/19/21 08:04 Dose: 10 mg Documented by: Magnesium Hydroxide (Milk Of Magnesia 30 Ml Oral.Susp) 30 ml PO DAILY PRN PRN Reason: Constipation Last Admin: 05/18/21 08:28 Dose: 30 ml Documented by: Naproxen (Naproxen 500 Mg Tablet) 500 mg PO Q12H PRN PRN Reason: mild pain Last Admin: 05/19/21 08:08 Dose: 500 mg Documented by: Olanzapine (Olanzapine 2.5 Mg Tablet) 2.5 mg PO Q4H PRN PRN Reason: agitation, anxiety Last Admin: 05/18/21 12:17 Dose: 2.5 mg Documented by: Omeprazole (Omeprazole 20 Mg Capsule.Dr) 20 mg PO DAILY@1630 [facility] Last Admin: 05/18/21 15:58 Dose: 20 mg Documented by: Oxcarbazepine (Oxcarbazepine 300 Mg Tablet) 300 mg PO TID [facility] Last Admin: 05/19/21 08:04 Dose: 300 mg Documented by: Trazodone HCl (Trazodone Hcl 50 Mg Tablet) 50 mg PO BEDTIME PRN PRN Reason: Insomnia Last Admin: 05/12/21 00:49 Dose: 50 mg Documented by: Allergies Allergies Allergy/AdvReac Type Severity Reaction Status Date / Time [id number] Reductase AdvReac Muscle Verified 05/10/21 18:31 Inhibitor cramps Assessment & Plan Assessment & Plan (1) MDD (major depressive disorder), recurrent episode, moderate: Status: Acute Code(s): F33.1 - Major depressive disorder, recurrent, moderate (2) Paresthesia: Status: Acute Code(s): R20.2 - Paresthesia of skin Assessment and Plan: This could be some form of central sensitization compounded by her anxiety and depression. I would recommend using hydroxyzine 25 mg along with gabapentin 300 mg at bedtime with additional hydroxyzine 25 mg every 8 hours when necessary Plan Mrs. Reynolds is a 70 year-old woman who was brought via EMS from her PCP office after she reported SI with plan to jump off bridge in setting of chronic pruritus although appears to be described more appropriately as bugs crawling on face and upper extremities. It appears most medications targeted possible allergic rx, she did try gabapentin (possible neuropathic), which reports was not helpful- wonder if trileptal for more trigeminal nerve pain/neuropathy) may be more helpful. Pt reports ativan helpful PLAN: 1. Continue same treatment. 2. Change gabapentin to 200 mg p.o. q.h.s. to avoid over-sedation I spent ____20__ minutes with the patient and/or on the patient floor today, greater than?50% of which was spent counseling/coordinating care. Reason for contiued inpatient stay Substantial Risk for: inability to function, rapid decompensation and med/psych decompensation
[2021-05-19] MEDS: Omeprazole 20 MG CAPSULE.DR PO (16:09)
[2021-05-19 18:00] VITALS: BP 142/73; PULSE 73; RESP 18; TEMP 36.8; O2SAT 98
[2021-05-19] MEDS: Gabapentin 100 MG CAPSULE 200 MG PO (20:22)
[2021-05-20 06:00] VITALS: BP 171/75; PULSE 77; RESP 16; TEMP 36.6; O2SAT 95
[2021-05-20] MEDS: hydrOXYzine HCL 10 MG TABLET PO ×3 (08:43→20:29)
[2021-05-20] MEDS: OXcarbazepine 300 MG TABLET PO ×3 (08:43→20:29)
[2021-05-20] MEDS: Escitalopram Oxalate 5 MG TABLET PO (08:44)
--- NOTE | 2021-05-20 12:59 | HO.PSYCHPN ---
Subjective Subjective Date of Service: 05/20/21 Reason For Visit: SECCTION 12 (AGE UNKNOWN) Subjective Notes: Conditional Voluntary Interim History: pt tolerating gabapentin with less sedation. reports some relief from dristress and itchiness. 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 GI: No c/o Nausea, Vomiting, diarrhea, constipation or heartburn Constitutional: Reports no additional constitutional complaints Eyes: Reports no additional eye complaints Denies dizziness Cardiovascular: Reports no additional cardiovascular complaints Respiratory: Reports as per HPI Gastrointestinal: Reports no additional gastrointestinal complaints Musculoskeletal: Reports no additional musculoskeletal complaints Skin/Breast: Denies rash Reports system reviewed and no additional complaints, except as documented, Denies dizziness and Denies Sensory deficit (Neuro) Psychiatric: Denies anxiety Mental Status Exam Mental Status Exam Narrative: A&O. In hospital attire, unkempt appearance, bandaid on face. Good eye contact, attentive. No Tics or Tremors. No abnormal involuntary movements. Calm, cooperative, engaged. Speech is somewhat pressured, talkative, spontaneous, normal volume and prosody. No prolonged speech latency or dysarthria. Mood is ?frustrated,? affect is anxious. Denies SI/SIB/HI upon inquiry. Denies A/VH or delusional thought content, ? of tactile of hallucinations but dx with neurodermatitis, feels bugs crawling on her. Thoughts are preoccupied on itching. No known cognitive or memory impairment. Insight/ Judgment fair and adequate. Patient Appearance: Well Grooomed Patient Orientation: Person and Situation Level of Consciousness: Awake Patient Behavior: Cooperative Mood Description: Depressed Affect Description: Constricted Patient Cognition Impaired: No Ability to Follow Directions: Good Speech Pattern: Clear Diagnostics Vital Signs (24Hr): Vital Signs - 24 hr 05/19/21 18:00 05/20/21 06:00 Temperature 98.3 F 97.8 F Pulse Rate 73 77 Respiratory Rate 18 16 Blood Pressure 142/73 H 171/75 H Pulse Oximetry 98 95 BMI result Body Mass Index 24.4 Labs Results: 05/10/21 19:11 05/12/21 07:59 Medications Medications Current Medications Acetaminophen (Acetaminophen 325 Mg Tablet) 650 mg PO Q6H PRN PRN Reason: Headache/Pain Mild Scale (1-3) Last Admin: 05/11/21 19:48 Dose: 650 mg Documented by: Al Hydroxide/Mg Hydroxide (Magnesium Hydrox/Alum Hydrox 30 Ml Oral.Susp) 30 ml PO Q6H PRN PRN Reason: Heartburn/Nausea Docusate Sodium (Docusate Sodium 100 Mg Capsule) 100 mg PO BID PRN PRN Reason: Constipation Last Admin: 05/18/21 08:29 Dose: 100 mg Documented by: Escitalopram Oxalate (Escitalopram Oxalate 5 Mg Tablet) 5 mg PO DAILY [facility] Last Admin: 05/20/21 08:44 Dose: 5 mg Documented by: Fluticasone Propionate (Fluticasone Propionate Nasal 16 Gm [place]) 2 spray NOSTRIL-B DAILY [facility] Last Admin: 05/19/21 08:04 Dose: 2 spray Documented by: Gabapentin (Gabapentin 100 Mg Capsule) 200 mg PO BEDTIME [facility] Last Admin: 05/19/21 20:22 Dose: 200 mg Documented by: Hydrocortisone (Hydrocortisone 1 % Cream 28.35 Gm Tube) 1 appl TOPICAL TID PRN PRN Reason: itching Last Admin: 05/18/21 17:48 Dose: 1 appl Documented by: Hydroxyzine HCl (Hydroxyzine Hcl 25 Mg Tablet) 25 mg PO Q6H PRN PRN Reason: itching Last Admin: 05/18/21 08:28 Dose: 25 mg Documented by: Hydroxyzine HCl (Hydroxyzine Hcl 10 Mg Tablet) 10 mg PO TID [facility] Last Admin: 05/20/21 08:43 Dose: 10 mg Documented by: Magnesium Hydroxide (Milk Of Magnesia 30 Ml Oral.Susp) 30 ml PO DAILY PRN PRN Reason: Constipation Last Admin: 05/18/21 08:28 Dose: 30 ml Documented by: Naproxen (Naproxen 500 Mg Tablet) 500 mg PO Q12H PRN PRN Reason: mild pain Last Admin: 05/19/21 20:22 Dose: 500 mg Documented by: Olanzapine (Olanzapine 2.5 Mg Tablet) 2.5 mg PO Q4H PRN PRN Reason: agitation, anxiety Last Admin: 05/18/21 12:17 Dose: 2.5 mg Documented by: Omeprazole (Omeprazole 20 Mg Capsule.Dr) 20 mg PO DAILY@1630 [facility] Last Admin: 05/19/21 16:09 Dose: 20 mg Documented by: Oxcarbazepine (Oxcarbazepine 300 Mg Tablet) 300 mg PO TID [facility] Last Admin: 05/20/21 08:43 Dose: 300 mg Documented by: Trazodone HCl (Trazodone Hcl 50 Mg Tablet) 50 mg PO BEDTIME PRN PRN Reason: Insomnia Last Admin: 05/12/21 00:49 Dose: 50 mg Documented by: Allergies Allergies Allergy/AdvReac Type Severity Reaction Status Date / Time [id number] Reductase AdvReac Muscle Verified 05/10/21 18:31 Inhibitor cramps Assessment & Plan Assessment & Plan (1) MDD (major depressive disorder), recurrent episode, moderate: Status: Acute Code(s): F33.1 - Major depressive disorder, recurrent, moderate (2) Paresthesia: Status: Acute Code(s): R20.2 - Paresthesia of skin Assessment and Plan: This could be some form of central sensitization compounded by her anxiety and depression. I would recommend using hydroxyzine 25 mg along with gabapentin 300 mg at bedtime with additional hydroxyzine 25 mg every 8 hours when necessary Plan Mrs. Reynolds is a 70 year-old woman who was brought via EMS from her PCP office after she reported SI with plan to jump off bridge in setting of chronic pruritus although appears to be described more appropriately as bugs crawling on face and upper extremities. It appears most medications targeted possible allergic rx, she did try gabapentin (possible neuropathic), which reports was not helpful- wonder if trileptal for more trigeminal nerve pain/neuropathy) may be more helpful. Pt reports ativan helpful PLAN: 05/20/21 1. Continue same treatment. 2. Change gabapentin to 200 mg p.o. q.h.s. to avoid over-sedation I spent __15____ minutes with the patient and/or on the patient floor today, greater than?50% of which was spent counseling/coordinating care. Reason for contiued inpatient stay Substantial Risk for: harm to self, inability to function and rapid decompensation
[2021-05-20] MEDS: Fluticasone Propionate Nasal 16 GM SPRAY 2 SPRAY NOSTRIL-B (15:22)
[2021-05-20] MEDS: Omeprazole 20 MG CAPSULE.DR PO (15:23)
[2021-05-20] MEDS: Hydrocortisone 1 % Cream 28.35 GM TUBE 1 APPL TOPICAL (18:55)
[2021-05-20] MEDS: hydrOXYzine HCL 25 MG TABLET PO (18:55)
[2021-05-20] MEDS: Gabapentin 100 MG CAPSULE PO (20:29)
[2021-05-20] MEDS: NaPROXEN 500 MG TABLET PO (20:36)
[2021-05-20 21:12] VITALS: BP 122/65; PULSE 73; RESP 18; TEMP 37; O2SAT 96
[2021-05-21 08:00] VITALS: BP 131/69; PULSE 69; RESP 18; TEMP 36.5; O2SAT 97
[2021-05-21] MEDS: hydrOXYzine HCL 10 MG TABLET PO ×3 (09:16→19:28)
[2021-05-21] MEDS: OXcarbazepine 300 MG TABLET PO ×3 (09:16→19:28)
[2021-05-21] MEDS: Escitalopram Oxalate 5 MG TABLET PO (09:16)
[2021-05-21] MEDS: Gabapentin 100 MG CAPSULE PO ×3 (09:16→19:28)
[2021-05-21] MEDS: hydrOXYzine HCL 25 MG TABLET PO (13:53)
[2021-05-21] MEDS: NaPROXEN 500 MG TABLET PO (13:53)
--- NOTE | 2021-05-21 15:20 | HO.PSYCHPN ---
Subjective Subjective Date of Service: 05/21/21 Reason For Visit: SECCTION 12 (AGE UNKNOWN) Subjective Notes: Conditional Voluntary Interim History: pt very anxious during day with gabapentin switch to HS only. pt doing more scratching and skin picking; she is agreeable to try the gabapentin 100mg TID again. tolerating gabapentin with less sedation. reports some relief from distress and itchiness. 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 GI: No c/o Nausea, Vomiting, diarrhea, constipation or heartburn Constitutional: Reports no additional constitutional complaints Eyes: Reports no additional eye complaints Denies dizziness Cardiovascular: Reports no additional cardiovascular complaints Respiratory: Reports as per HPI Gastrointestinal: Reports no additional gastrointestinal complaints Musculoskeletal: Reports no additional musculoskeletal complaints Skin/Breast: Denies rash Reports system reviewed and no additional complaints, except as documented, Denies dizziness and Denies Sensory deficit (Neuro) Psychiatric: Denies anxiety Mental Status Exam Mental Status Exam Narrative: A&O. In hospital attire, unkempt appearance, bandaid on face. Good eye contact, attentive. No Tics or Tremors. No abnormal involuntary movements. Calm, cooperative, engaged. Speech is somewhat pressured, talkative, spontaneous, normal volume and prosody. No prolonged speech latency or dysarthria. Mood is ?frustrated,? affect is anxious. Denies SI/SIB/HI upon inquiry. Denies A/VH or delusional thought content, ? of tactile of hallucinations but dx with neurodermatitis, feels bugs crawling on her. Thoughts are preoccupied on itching. No known cognitive or memory impairment. Insight/ Judgment fair and adequate. Patient Appearance: Well Grooomed Patient Orientation: Person and Situation Level of Consciousness: Awake Patient Behavior: Cooperative Mood Description: Depressed Affect Description: Constricted Patient Cognition Impaired: No Ability to Follow Directions: Good Speech Pattern: Clear Diagnostics Vital Signs (24Hr): Vital Signs - 24 hr 05/20/21 21:12 05/21/21 08:00 Temperature 98.6 F 97.7 F Pulse Rate 73 69 Respiratory Rate 18 18 Blood Pressure 122/65 131/69 Pulse Oximetry 96 97 BMI result Body Mass Index 24.4 Labs Results: 05/10/21 19:11 05/12/21 07:59 Medications Medications Current Medications Acetaminophen (Acetaminophen 325 Mg Tablet) 650 mg PO Q6H PRN PRN Reason: Headache/Pain Mild Scale (1-3) Last Admin: 05/11/21 19:48 Dose: 650 mg Documented by: Al Hydroxide/Mg Hydroxide (Magnesium Hydrox/Alum Hydrox 30 Ml Oral.Susp) 30 ml PO Q6H PRN PRN Reason: Heartburn/Nausea Docusate Sodium (Docusate Sodium 100 Mg Capsule) 100 mg PO BID PRN PRN Reason: Constipation Last Admin: 05/18/21 08:29 Dose: 100 mg Documented by: Escitalopram Oxalate (Escitalopram Oxalate 5 Mg Tablet) 5 mg PO DAILY [facility] Last Admin: 05/21/21 09:16 Dose: 5 mg Documented by: Fluticasone Propionate (Fluticasone Propionate Nasal 16 Gm [place]) 2 spray NOSTRIL-B DAILY [facility] Last Admin: 05/21/21 11:13 Dose: Not Given Documented by: Gabapentin (Gabapentin 100 Mg Capsule) 100 mg PO TID [facility] Last Admin: 05/21/21 09:16 Dose: 100 mg Documented by: Hydrocortisone (Hydrocortisone 1 % Cream 28.35 Gm Tube) 1 appl TOPICAL TID PRN PRN Reason: itching Last Admin: 05/20/21 18:55 Dose: 1 appl Documented by: Hydroxyzine HCl (Hydroxyzine Hcl 25 Mg Tablet) 25 mg PO Q6H PRN PRN Reason: itching Last Admin: 05/21/21 13:53 Dose: 25 mg Documented by: Hydroxyzine HCl (Hydroxyzine Hcl 10 Mg Tablet) 10 mg PO TID [facility] Last Admin: 05/21/21 09:16 Dose: 10 mg Documented by: Magnesium Hydroxide (Milk Of Magnesia 30 Ml Oral.Susp) 30 ml PO DAILY PRN PRN Reason: Constipation Last Admin: 05/18/21 08:28 Dose: 30 ml Documented by: Naproxen (Naproxen 500 Mg Tablet) 500 mg PO Q12H PRN PRN Reason: mild pain Last Admin: 05/21/21 13:53 Dose: 500 mg Documented by: Nicotine (Nicotine 7 Mg Patch.Td24) 7 mg TRANSDERMA DAILY [facility] Olanzapine (Olanzapine 2.5 Mg Tablet) 2.5 mg PO Q4H PRN PRN Reason: agitation, anxiety Last Admin: 05/18/21 12:17 Dose: 2.5 mg Documented by: Omeprazole (Omeprazole 20 Mg [place].) 20 mg PO DAILY@1630 [facility] Last Admin: 05/20/21 15:23 Dose: 20 mg Documented by: Oxcarbazepine (Oxcarbazepine 300 Mg Tablet) 300 mg PO TID [facility] Last Admin: 05/21/21 09:16 Dose: 300 mg Documented by: Trazodone HCl (Trazodone Hcl 50 Mg Tablet) 50 mg PO BEDTIME PRN PRN Reason: Insomnia Last Admin: 05/12/21 00:49 Dose: 50 mg Documented by: Allergies Allergies Allergy/AdvReac Type Severity Reaction Status Date / Time [id number] Reductase AdvReac Muscle Verified 05/10/21 18:31 Inhibitor cramps Assessment & Plan Assessment & Plan (1) MDD (major depressive disorder), recurrent episode, moderate: Status: Acute Code(s): F33.1 - Major depressive disorder, recurrent, moderate (2) Paresthesia: Status: Acute Code(s): R20.2 - Paresthesia of skin Assessment and Plan: This could be some form of central sensitization compounded by her anxiety and depression. I would recommend using hydroxyzine 25 mg along with gabapentin 300 mg at bedtime with additional hydroxyzine 25 mg every 8 hours when necessary Plan Mrs. Reynolds is a 70 year-old woman who was brought via EMS from her PCP office after she reported SI with plan to jump off bridge in setting of chronic pruritus although appears to be described more appropriately as bugs crawling on face and upper extremities. It appears most medications targeted possible allergic rx, she did try gabapentin (possible neuropathic), which reports was not helpful- wonder if trileptal for more trigeminal nerve pain/neuropathy) may be more helpful. Pt reports ativan helpful PLAN: 05/21/21 1. Continue same treatment. 2. Change gabapentin to 100 mg TID I spent ____15__ minutes with the patient and/or on the patient floor today, greater than?50% of which was spent counseling/coordinating care. Reason for contiued inpatient stay Substantial Risk for: harm to self, inability to function and rapid decompensation
[2021-05-21] MEDS: Omeprazole 20 MG CAPSULE.DR PO (15:55)
[2021-05-21] MEDS: Nicotine 7 MG PATCH.TD24 TRANSDERMA (15:59)
[2021-05-21 16:50] VITALS: BP 165/76; PULSE 81; RESP 16; TEMP 35.2; O2SAT 99
--- NOTE | 2021-05-21 17:16 | PC.NURSE ---
Patient experiencing excessive itching this shift. Medicated with PRN Atarax. Receiving scheduled Neurontin, Trileptal and Hydroxyzine with minimal effect. Patient has also utilized topical hydrocortisone cream for itching. 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 Nicotine patch ordered and applied.
[2021-05-22 06:00] VITALS: BP 139/67; PULSE 67; RESP 17; TEMP 36.3; O2SAT 99
[2021-05-22] MEDS: hydrOXYzine HCL 25 MG TABLET PO (06:05)
--- NOTE | 2021-05-22 06:23 | PC.NURSE ---
pt awake/moderately anxious/concerned no one can explain why she is having these abouts of rash and itching. she has several small poorly marked dermatological areas on her palms and inner fingers. she has several uncontrollable movements where she says the bugs are crawling all over me. there are several ill defined areas of rash on forehead. she is easily managing her airway and secretions. resp effort is regular unlabored. plan 1. atarax 25 mg po 2. hydrocortisone cream applied to hands and forehead
[2021-05-22] MEDS: Escitalopram Oxalate 5 MG TABLET PO (09:14)
[2021-05-22] MEDS: Gabapentin 100 MG CAPSULE PO ×3 (09:14→20:27)
[2021-05-22] MEDS: OXcarbazepine 300 MG TABLET PO ×2 (09:14→14:33)
[2021-05-22] MEDS: hydrOXYzine HCL 10 MG TABLET PO ×3 (09:14→20:27)
[2021-05-22] MEDS: OLANZapine 2.5 MG TABLET PO (10:40)
[2021-05-22] MEDS: diphenhydrAMINE HCL 25 MG TABLET PO ×2 (10:40→21:37)
[2021-05-22] MEDS: Acetaminophen 325 MG TABLET 650 MG PO (14:36)
--- NOTE | 2021-05-22 14:50 | P.PNPSI_ITS ---
Subjective Subjective Date of Service: 05/22/21 Reason For Visit: SECCTION 12 (AGE UNKNOWN) Subjective Notes: Conditional Voluntary Interim History: Pt reports she had some good days last week but over the weekend reports more itching and increased anxiety. she reports sleep fair as peer was loud and kept her awake. She reports high anxiety today and passive SI. She reports ativan was helpful- will like to try it again. Will continue gabapentin and ativan, d/c trileptal as no clinical indication at this point. Increase lexapro for depression. 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 MANAGER: No c/o dizziness, headache GI: No c/o Nausea, Vomiting, diarrhea, constipation or heartburn Constitutional: Reports no additional constitutional complaints Eyes: Reports no additional eye complaints Denies dizziness Cardiovascular: Reports no additional cardiovascular complaints Respiratory: Reports as per HPI Gastrointestinal: Reports no additional gastrointestinal complaints Musculoskeletal: Reports no additional musculoskeletal complaints Skin/Breast: Denies rash Reports system reviewed and no additional complaints, except as documented, Denies dizziness and Denies Sensory deficit (Neuro) Psychiatric: Denies anxiety Mental Status Exam Mental Status Exam Narrative: A&O. In hospital attire, unkempt appearance, bandaid on face. Good eye contact, attentive. No Tics or Tremors. No abnormal involuntary movements. Calm, cooperative, engaged. Speech is somewhat pressured, talkative, spontaneous, normal volume and prosody. No prolonged speech latency or dysarthria. Mood is ?frustrated,? affect is anxious. Denies SI/SIB/HI upon inquiry. Denies A/VH or delusional thought content, ? of tactile of hallucinations but dx with neurodermatitis, feels bugs crawling on her. Thoughts are preoccupied on itching. No known cognitive or memory impairment. Insight/ Judgment fair and adequate. Diagnostics Vital Signs (24Hr): Vital Signs - 24 hr 05/21/21 16:50 05/22/21 06:00 Temperature 95.4 F L 97.4 F Pulse Rate 81 67 Respiratory Rate 16 17 Blood Pressure 165/76 H 139/67 Pulse Oximetry 99 99 BMI result Body Mass Index 24.4 Labs Results: 05/10/21 19:11 05/12/21 07:59 Medications Medications Current Medications Acetaminophen (Acetaminophen 325 Mg Tablet) 650 mg PO Q6H PRN PRN Reason: Headache/Pain Mild Scale (1-3) Last Admin: 05/22/21 14:36 Dose: 650 mg Documented by: Al Hydroxide/Mg Hydroxide (Magnesium Hydrox/Alum Hydrox 30 Ml Oral.Susp) 30 ml PO Q6H PRN PRN Reason: Heartburn/Nausea Diphenhydramine HCl (Diphenhydramine Hcl 25 Mg Tablet) 25 mg PO Q4H PRN PRN Reason: Allergic Reaction Last Admin: 05/22/21 10:40 Dose: 25 mg Documented by: Docusate Sodium (Docusate Sodium 100 Mg Capsule) 100 mg PO BID PRN PRN Reason: Constipation Last Admin: 05/18/21 08:29 Dose: 100 mg Documented by: Escitalopram Oxalate (Escitalopram Oxalate 10 Mg Tablet) 10 mg PO DAILY [facility] Fluticasone Propionate (Fluticasone Propionate Nasal 16 Gm [place]) 2 spray NOSTRIL-B DAILY [facility] Last Admin: 05/22/21 10:03 Dose: Not Given Documented by: Gabapentin (Gabapentin 100 Mg Capsule) 100 mg PO TID [facility] Last Admin: 05/22/21 14:33 Dose: 100 mg Documented by: Hydrocortisone (Hydrocortisone 1 % Cream 28.35 Gm Tube) 1 appl TOPICAL TID PRN PRN Reason: itching Last Admin: 05/20/21 18:55 Dose: 1 appl Documented by: Hydroxyzine HCl (Hydroxyzine Hcl 25 Mg Tablet) 25 mg PO Q6H PRN PRN Reason: itching Last Admin: 05/22/21 06:05 Dose: 25 mg Documented by: Hydroxyzine HCl (Hydroxyzine Hcl 10 Mg Tablet) 10 mg PO TID [facility] Last Admin: 05/22/21 14:33 Dose: 10 mg Documented by: Magnesium Hydroxide (Milk Of Magnesia 30 Ml Oral.Susp) 30 ml PO DAILY PRN PRN Reason: Constipation Last Admin: 05/18/21 08:28 Dose: 30 ml Documented by: Naproxen (Naproxen 500 Mg Tablet) 500 mg PO Q12H PRN PRN Reason: mild pain Last Admin: 05/21/21 13:53 Dose: 500 mg Documented by: Nicotine (Nicotine 7 Mg Patch.Td24) 7 mg TRANSDERMA DAILY [facility] Last Admin: 05/22/21 10:03 Dose: Not Given Documented by: Olanzapine (Olanzapine 2.5 Mg Tablet) 2.5 mg PO Q4H PRN PRN Reason: agitation, anxiety Last Admin: 05/22/21 10:40 Dose: 2.5 mg Documented by: Omeprazole (Omeprazole 20 Mg Capsule.Dr) 20 mg PO DAILY@1630 [facility] Last Admin: 05/21/21 15:55 Dose: 20 mg Documented by: Trazodone HCl (Trazodone Hcl 50 Mg Tablet) 50 mg PO BEDTIME PRN PRN Reason: Insomnia Last Admin: 05/12/21 00:49 Dose: 50 mg Documented by: Allergies Allergies Allergy/AdvReac Type Severity Reaction Status Date / Time [id number] Reductase AdvReac Muscle Verified 05/10/21 18:31 Inhibitor cramps Assessment & Plan Assessment & Plan (1) MDD (major depressive disorder), recurrent episode, moderate: Status: Acute Code(s): F33.1 - Major depressive disorder, recurrent, moderate (2) Paresthesia: Status: Acute Code(s): R20.2 - Paresthesia of skin Assessment and Plan: This could be some form of central sensitization compounded by her anxiety and depression. I would recommend using hydroxyzine 25 mg along with gabapentin 300 mg at bedtime with additional hydroxyzine 25 mg every 8 hours when necessary Plan Mrs. Reynolds is a 70 year-old woman who was brought via EMS from her PCP office after she reported SI with plan to jump off bridge in setting of chronic pruritus although appears to be described more appropriately as bugs crawling on face and upper extremities. It appears most medications targeted possible allergic rx, she did try gabapentin (possible neuropathic), which reports was not helpful- wonder if trileptal for more trigeminal nerve pain/neuropathy) may be more helpful. Pt reports ativan helpful PLAN: 05/21/21 1. Continue same treatment. 2. Change gabapentin to 100 mg TID 05/22- d/c trileptal as no clinical indication, continue gabapentin 100mg po TID, restart ativan 0.5mg po TID. increase lexapro to 10mg po daily for depression and anxiety. I spent minutes with the patient and/or on the patient floor today, greater than?50% of which was spent counseling/coordinating care. Reason for contiued inpatient stay Substantial Risk for: harm to self
[2021-05-22] MEDS: Omeprazole 20 MG CAPSULE.DR PO (15:19)
[2021-05-22] MEDS: LORazepam 0.5 MG TABLET PO ×2 (15:19→20:27)
[2021-05-22 18:00] VITALS: BP 152/71; PULSE 80; RESP 19; TEMP 36.6; O2SAT 99
[2021-05-22] MEDS: Hydrocortisone 1 % Cream 28.35 GM TUBE 1 APPL TOPICAL (21:18)
[2021-05-23 06:00] VITALS: BP 122/60; PULSE 66; TEMP 36.8; O2SAT 95
[2021-05-23] MEDS: LORazepam 0.5 MG TABLET PO ×3 (08:04→20:29)
[2021-05-23] MEDS: Escitalopram Oxalate 10 MG TABLET PO (08:04)
[2021-05-23] MEDS: Gabapentin 100 MG CAPSULE PO ×3 (08:04→20:29)
[2021-05-23] MEDS: Nicotine 7 MG PATCH.TD24 TRANSDERMA (08:04)
[2021-05-23] MEDS: hydrOXYzine HCL 10 MG TABLET PO ×3 (08:04→20:29)
--- NOTE | 2021-05-23 13:39 | P.PNPSI_ITS ---
Subjective Subjective Date of Service: 05/23/21 Reason For Visit: SECCTION 12 (AGE UNKNOWN) Interim History: Pt reports feeling better today in that she is less anxious, less overwhelmed. p t reports she slept well. She is tolerating medications including combination of gabapentin and ativan. today new dose of lexapro. She denies SI/HI. States she feels better more stable for d/c in next few days. Per nursing, pt has been visible in the unit, social with peers. No behavioral concerns. 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: No c/o dizziness, headache GI: No c/o Nausea, Vomiting, diarrhea, constipation or heartburn Constitutional: Reports no additional constitutional complaints Eyes: Reports no additional eye complaints Denies dizziness Cardiovascular: Reports no additional cardiovascular complaints Respiratory: Reports as per HPI Gastrointestinal: Reports no additional gastrointestinal complaints Musculoskeletal: Reports no additional musculoskeletal complaints Skin/Breast: Denies rash Reports system reviewed and no additional complaints, except as documented, Denies dizziness and Denies Sensory deficit (Neuro) Psychiatric: Denies anxiety Mental Status Exam Mental Status Exam Narrative: A&O. In hospital attire, unkempt appearance, bandaid on face. Good eye contact, attentive. No Tics or Tremors. No abnormal involuntary movements. Calm, coopera tive, engaged. Speech is somewhat pressured, talkative, spontaneous, normal volume and prosody. No prolonged speech latency or dysarthria. Mood is ?frustrated,? affect is anxious. Denies SI/SIB/HI upon inquiry. Denies A/VH or delusional thought content, ? of tactile of hallucinations but dx with christina rodermatitis, feels bugs crawling on her. Thoughts are preoccupied on itching. No known cognitive or memory impairment. Insight/ Judgment fair and adequate. Diagnostics Vital Signs (24Hr): Vital Signs - 24 hr 05/22/21 18:00 05/23/21 06:00 Temperature 98 F 98.2 F Pulse Rate 80 66 Respiratory Rate 19 Blood Pressure 152/71 H 122/60 Pulse Oximetry 99 95 BMI result Body Mass Index 24.4 Labs Results: 05/10/21 19:11 05/12/21 07:59 Medications Medications Current Medications Acetaminophen (Acetaminophen 325 Mg Tablet) 650 mg PO Q6H PRN PRN Reason: Headache/Pain Mild Scale (1-3) Last Admin: 05/22/21 14:36 Dose: 650 mg Documented by: Al Hydroxide/Mg Hydroxide (Magnesium Hydrox/Alum Hydrox 30 Ml Oral.Susp) 30 ml PO Q6H PRN PRN Reason: Heartburn/Nausea Diphenhydramine HCl (Diphenhydramine Hcl 25 Mg Tablet) 25 mg PO Q4H PRN PRN Reason: Allergic Reaction Last Admin: 05/22/21 21:37 Dose: 25 mg Documented by: Docusate Sodium (Docusate Sodium 100 Mg Capsule) 100 mg PO BID PRN PRN Reason: Constipation Last Admin: 05/18/21 08:29 Dose: 100 mg Documented by: Escitalopram Oxalate (Escitalopram Oxalate 10 Mg Tablet) 10 mg PO DAILY COUNTS [facility]CLUDE [facility] BEDS AT [facility] Last Admin: 05/23/21 08:04 Dose: 10 mg Documented by: Fluticasone Propionate (Fluticasone Propionate Nasal 16 Gm [place]) 2 spray NOSTRIL-B DAILY COUNTS [facility]CLUDE 234 BEDS AT THE [facility] Last Admin: 05/23/21 08:30 Dose: Not Given Documented by: Gabapentin (Gabapentin 100 Mg Capsule) 100 mg PO TID COUNTS [facility]CLUDE 234 BEDS AT THE [facility] Last Admin: 05/23/21 15:27 Dose: 100 mg Documented by: Hydrocortisone (Hydrocortisone 1 % Cream 28.35 Gm Tube) 1 appl TOPICAL TID PRN PRN Reason: itching Last Admin: 05/22/21 21:18 Dose: 1 appl Documented by: Hydroxyzine HCl (Hydroxyzine Hcl 25 Mg Tablet) 25 mg PO Q6H PRN PRN Reason: itching Last Admin: 05/23/21 15:27 Dose: 25 mg Documented by: Hydroxyzine HCl (Hydroxyzine Hcl 10 Mg Tablet) 10 mg PO TID COUNTS [facility]CLUDE 234 BEDS AT THE [facility] Last Admin: 05/23/21 15:27 Dose: 10 mg Documented by: Lorazepam (Lorazepam 0.5 Mg Tablet) 0.5 mg PO TID COUNTS INCLUDE 234 BEDS AT THE [facility] Last Admin: 05/23/21 15:27 Dose: 0.5 mg Documented by: Magnesium Hydroxide (Milk Of Magnesia 30 Ml Oral.Susp) 30 ml PO DAILY PRN PRN Reason: Constipation Last Admin: 05/18/21 08:28 Dose: 30 ml Documented by: Naproxen (Naproxen 500 Mg Tablet) 500 mg PO Q12H PRN PRN Reason: mild pain Last Admin: 05/21/21 13:53 Dose: 500 mg Documented by: Nicotine (Nicotine 7 Mg Patch.Td24) 7 mg TRANSDERMA DAILY COUNTS [facility]CLUDE 234 BEDS AT [facility] Last Admin: 05/23/21 08:04 Dose: 7 mg Documented by: Olanzapine (Olanzapine 2.5 Mg Tablet) 2.5 mg PO Q4H PRN PRN Reason: agitation, anxiety Last Admin: 05/22/21 10:40 Dose: 2.5 mg Documented by: Omeprazole (Omeprazole 20 Mg Capsule.Dr) 20 mg PO DAILY@1630 COUNTS [facility]CLUDE 234 BEDS AT [facility] Last Admin: 05/22/21 15:19 Dose: 20 mg Documented by: Trazodone HCl (Trazodone Hcl 50 Mg Tablet) 50 mg PO BEDTIME PRN PRN Reason: Insomnia Last Admin: 05/12/21 00:49 Dose: 50 mg Documented by: Allergies Allergies Allergy/AdvReac Type Severity Reaction Status Date / Time Zkvlfye-DRM-EkI Reductase AdvReac Muscle Verified 05/10/21 18:31 Inhibitor cramps Assessment & Plan Assessment & Plan (1) MDD (major depressive disorder), recurrent episode, moderate: Status: Acute Code(s): F33.1 - Major depressive disorder, recurrent, moderate (2) Paresthesia: Status: Acute Code(s): R20.2 - Paresthesia of skin Assessment and Plan: This could be some form of central sensitization compounded by her anxiety and depression. I would recommend using hydroxyzine 25 mg along with gabapentin 300 mg at bedtime with additional hydroxyzine 25 mg every 8 hours when necessary Plan Mrs. Reynolds is a 70 year-old woman who was brought via EMS from her PCP office after she reported SI with plan to jump off bridge in setting of chronic pruritus although appears to be described more appropriately as bugs crawling on face and upper extremities. It appears most medications targeted possible allergic rx, she did try gabapentin (possible neuropathic), which reports was not helpful- wonder if trileptal for more trigeminal nerve pain/neuropathy) may be more helpful. Pt reports ativan helpful PLAN: 05/21/21 1. Continue same treatment. 2. Change gabapentin to 100 mg TID 05/22- d/c trileptal as no clinical indication, continue gabapentin 100mg po TID, restart ativan 0.5mg po TID. increase lexapro to 10mg po daily for depression and anxiety. 05/23 continue current medications. I spent minutes with the patient and/or on the patient floor today, greater than?50% of which was spent counseling/coordinating care. Reason for contiued inpatient stay Substantial Risk for: stable for discharge
[2021-05-23] MEDS: hydrOXYzine HCL 25 MG TABLET PO (15:27)
[2021-05-23 20:05] VITALS: BP 127/60; PULSE 75; RESP 19; TEMP 36.6; O2SAT 98
[2021-05-23] MEDS: Acetaminophen 325 MG TABLET 650 MG PO (20:44)
[2021-05-24 06:00] VITALS: BP 137/66; PULSE 69; RESP 17; TEMP 36.5; O2SAT 96
[2021-05-24] MEDS: Fluticasone Propionate Nasal 16 GM SPRAY 2 SPRAY NOSTRIL-B (08:09)
[2021-05-24] MEDS: Nicotine 7 MG PATCH.TD24 TRANSDERMA (08:10)
[2021-05-24] MEDS: hydrOXYzine HCL 10 MG TABLET PO ×3 (08:11→19:57)
[2021-05-24] MEDS: LORazepam 0.5 MG TABLET PO ×3 (08:11→19:57)
[2021-05-24] MEDS: Escitalopram Oxalate 10 MG TABLET PO (08:11)
[2021-05-24] MEDS: Gabapentin 100 MG CAPSULE PO ×3 (08:11→19:57)
[2021-05-24] MEDS: Acetaminophen 325 MG TABLET 650 MG PO ×2 (08:18→20:34)
--- NOTE | 2021-05-24 10:29 | HO.PSYCHPN ---
Subjective Subjective Date of Service: 05/24/21 Reason For Visit: SECCTION 12 (AGE UNKNOWN) Subjective Notes: Conditional Voluntary Interim History: Pt continues to report feeling better in that she is less anxious, less overwhelmed. pt reports she slept well. She is tolerating medications including combination of gabapentin and ativan. She reports less itchiness on skin, antipruritus ointments recommended by PILAR Vogel. She denies SI/HI. States she feels better more stable for d/c in next few days. Per nursing, pt has been visible in the unit, social with peers. No behavioral concerns. 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 ARNP: No c/o dizziness, headache GI: No c/o Nausea, Vomiting, diarrhea, constipation or heartburn Yes all other systems are reviewed and are negative Constitutional: Reports no additional constitutional complaints Eyes: Reports no additional eye complaints Denies dizziness Cardiovascular: Reports no additional cardiovascular complaints Respiratory: Reports as per HPI Gastrointestinal: Reports no additional gastrointestinal complaints Musculoskeletal: Reports no additional musculoskeletal complaints Skin/Breast: Denies rash Reports system reviewed and no additional complaints, except as documented, Denies dizziness and Denies Sensory deficit (Neuro) Psychiatric: Denies anxiety Mental Status Exam Mental Status Exam Narrative: A&O. In hospital attire, unkempt appearance, bandaid on face. Good eye contact, attentive. No Tics or Tremors. No abnormal involuntary movements. Calm, cooperative, engaged. Speech is somewhat pressured, talkative, spontaneous, normal volume and prosody. No prolonged speech latency or dysarthria. Mood is ?frustrated,? affect is anxious. Denies SI/SIB/HI upon inquiry. Denies A/VH or delusional thought content. Thoughts are preoccupied on itching. No known cognitive or memory impairment. Insight/ Judgment fair and adequate. Diagnostics Vital Signs (24Hr): Vital Signs - 24 hr 05/23/21 20:05 05/24/21 06:00 Temperature 97.8 F 97.7 F Pulse Rate 75 69 Respiratory Rate 19 17 Blood Pressure 127/60 137/66 Pulse Oximetry 98 96 BMI result Body Mass Index 24.4 Labs Results: 05/10/21 19:11 05/12/21 07:59 Medications Medications Current Medications Acetaminophen (Acetaminophen 325 Mg Tablet) 650 mg PO Q6H PRN PRN Reason: Headache/Pain Mild Scale (1-3) Last Admin: 05/24/21 08:18 Dose: 650 mg Documented by: Al Hydroxide/Mg Hydroxide (Magnesium Hydrox/Alum Hydrox 30 Ml Oral.Susp) 30 ml PO Q6H PRN PRN Reason: Heartburn/Nausea Diphenhydramine HCl (Diphenhydramine Hcl 25 Mg Tablet) 25 mg PO Q4H PRN PRN Reason: Allergic Reaction Last Admin: 05/22/21 21:37 Dose: 25 mg Documented by: Docusate Sodium (Docusate Sodium 100 Mg Capsule) 100 mg PO BID PRN PRN Reason: Constipation Last Admin: 05/18/21 08:29 Dose: 100 mg Documented by: Escitalopram Oxalate (Escitalopram Oxalate 10 Mg Tablet) 10 mg PO DAILY [facility] Last Admin: 05/24/21 08:11 Dose: 10 mg Documented by: Fluticasone Propionate (Fluticasone Propionate Nasal 16 Gm [place]) 2 spray NOSTRIL-B DAILY [facility] Last Admin: 05/24/21 08:09 Dose: 2 spray Documented by: Gabapentin (Gabapentin 100 Mg Capsule) 100 mg PO TID [facility] Last Admin: 05/24/21 14:13 Dose: 100 mg Documented by: Hydrocortisone (Hydrocortisone 1 % Cream 28.35 Gm Tube) 1 appl TOPICAL TID PRN PRN Reason: itching Last Admin: 05/22/21 21:18 Dose: 1 appl Documented by: Hydroxyzine HCl (Hydroxyzine Hcl 25 Mg Tablet) 25 mg PO Q6H PRN PRN Reason: itching Last Admin: 05/23/21 15:27 Dose: 25 mg Documented by: Hydroxyzine HCl (Hydroxyzine Hcl 10 Mg Tablet) 10 mg PO TID [facility] Last Admin: 05/24/21 13:56 Dose: 10 mg Documented by: Lorazepam (Lorazepam 0.5 Mg Tablet) 0.5 mg PO TID [facility] Last Admin: 05/24/21 13:58 Dose: 0.5 mg Documented by: Magnesium Hydroxide (Milk Of Magnesia 30 Ml Oral.Susp) 30 ml PO DAILY PRN PRN Reason: Constipation Last Admin: 05/18/21 08:28 Dose: 30 ml Documented by: Naproxen (Naproxen 500 Mg Tablet) 500 mg PO Q12H PRN PRN Reason: mild pain Last Admin: 05/21/21 13:53 Dose: 500 mg Documented by: Nicotine (Nicotine 7 Mg Patch.Td24) 7 mg TRANSDERMA DAILY [facility] Last Admin: 05/24/21 08:10 Dose: 7 mg Documented by: Olanzapine (Olanzapine 2.5 Mg Tablet) 2.5 mg PO Q4H PRN PRN Reason: agitation, anxiety Last Admin: 05/22/21 10:40 Dose: 2.5 mg Documented by: Omeprazole (Omeprazole 20 Mg Capsule.Dr) 20 mg PO DAILY@1630 [facility] Last Admin: 05/23/21 17:43 Dose: Not Given Documented by: Trazodone HCl (Trazodone Hcl 50 Mg Tablet) 50 mg PO BEDTIME PRN PRN Reason: Insomnia Last Admin: 05/12/21 00:49 Dose: 50 mg Documented by: Allergies Allergies Allergy/AdvReac Type Severity Reaction Status Date / Time Akrezbr-FLM-HaN Reductase AdvReac Muscle Verified 05/10/21 18:31 Inhibitor cramps Assessment & Plan Assessment & Plan (1) MDD (major depressive disorder), recurrent episode, moderate: Status: Acute Code(s): F33.1 - Major depressive disorder, recurrent, moderate Plan RASH: topical antiprurutic agents, Check Hepatitis C and B and HIV psych: continue current medications. I spent ___25___ minutes with the patient and/or on the patient floor today, greater than?50% of which was spent counseling/coordinating care. Reason for contiued inpatient stay Substantial Risk for: harm to self
--- NOTE | 2021-05-24 13:24 | W.PM.IDCN ---
History of Present Illness Data of Consult Service Date: 05/24/21 Requesting physician: Hailey Bowie Primary Care Provider: Anita Menchaca MD HPI Reason for consult: pruritis and rash I am asked to see her for pruritus and lesions on legs and face. She says she has chronic itching for two years but has not been scratching. She noted no skin changes until last week here and saw red macules on legs and face and hand blisters which resolved. She has no fever or chills and no child exposure. Review of Systems Review of Systems: Yes all other systems are reviewed and are negative [facility] Past Medical History Medical History (Updated 05/24/21 @ 13:28 by Aparna Vogel MD) Arthritis Depression GERD (gastroesophageal reflux disease) Rash Family History Family history: reviewed and not pertinent Social History Social History Household Members: Family Housing: Other Housing Other:: in-law apartment Do you presently have visiting nurse or other home services: No Patient Tobacco Use Status: Current someday Tobacco user Tobacco use type: Cigarette Smoked in Last 30 Days: Yes Patient Interested in Nicotine Replacement: No ( pt was asked if she wanted nicotine, pt declined. ) Patient Given Instructions on How to Stop Smoking: Yes Date Education Initiated: 05/11/21 Second Hand Smoke Exposure: No Use of substances other than those prescribed or required for medical reasons: No Currently Displaying Signs/Symptoms of Drug Intoxication Withdrawal: No Have you been hit, kicked, punched, or otherwise hurt by someone within the past year? If so, by whom?: No Do you feel safe in your current relationship?: No Current Relationship Is there a partner from a previous relationship who is making you feel unsafe now?: No Are you made to feel afraid or neglected: No Advance Directives: No Advance Directives Information Provided: No Healthcare Proxy: No Guardian: No Do you have thoughts of harming others: None Do you have a plan to hurt others: No Plan Recently lost weight without trying: No Eating poorly because of decreased appetite: Yes Nutrition Risks: No Nutritional Risk service: No Sexual orientation: Straight/Heterosexual Meds Allergies Allergy/AdvReac Type Severity Reaction Status Date / Time [id number] Reductase AdvReac Muscle Verified 05/10/21 18:31 Inhibitor cramps Active Medications: Current Medications Acetaminophen (Acetaminophen 325 Mg Tablet) 650 mg PO Q6H PRN PRN Reason: Headache/Pain Mild Scale (1-3) Last Admin: 05/24/21 08:18 Dose: 650 mg Documented by: Al Hydroxide/Mg Hydroxide (Magnesium Hydrox/Alum Hydrox 30 Ml Oral.Susp) 30 ml PO Q6H PRN PRN Reason: Heartburn/Nausea Diphenhydramine HCl (Diphenhydramine Hcl 25 Mg Tablet) 25 mg PO Q4H PRN PRN Reason: Allergic Reaction Last Admin: 05/22/21 21:37 Dose: 25 mg Documented by: Docusate Sodium (Docusate Sodium 100 Mg Capsule) 100 mg PO BID PRN PRN Reason: Constipation Last Admin: 05/18/21 08:29 Dose: 100 mg Documented by: Escitalopram Oxalate (Escitalopram Oxalate 10 Mg Tablet) 10 mg PO DAILY [facility] Last Admin: 05/24/21 08:11 Dose: 10 mg Documented by: Fluticasone Propionate (Fluticasone Propionate Nasal 16 Gm [place]) 2 spray NOSTRIL-B DAILY [facility] Last Admin: 05/24/21 08:09 Dose: 2 spray Documented by: Gabapentin (Gabapentin 100 Mg Capsule) 100 mg PO TID [facility] Last Admin: 05/24/21 08:11 Dose: 100 mg Documented by: Hydrocortisone (Hydrocortisone 1 % Cream 28.35 Gm Tube) 1 appl TOPICAL TID PRN PRN Reason: itching Last Admin: 05/22/21 21:18 Dose: 1 appl Documented by: Hydroxyzine HCl (Hydroxyzine Hcl 25 Mg Tablet) 25 mg PO Q6H PRN PRN Reason: itching Last Admin: 05/23/21 15:27 Dose: 25 mg Documented by: Hydroxyzine HCl (Hydroxyzine Hcl 10 Mg Tablet) 10 mg PO TID [facility] Last Admin: 05/24/21 08:11 Dose: 10 mg Documented by: Lorazepam (Lorazepam 0.5 Mg Tablet) 0.5 mg PO TID [facility] Last Admin: 05/24/21 08:11 Dose: 0.5 mg Documented by: Magnesium Hydroxide (Milk Of Magnesia 30 Ml Oral.Susp) 30 ml PO DAILY PRN PRN Reason: Constipation Last Admin: 05/18/21 08:28 Dose: 30 ml Documented by: Naproxen (Naproxen 500 Mg Tablet) 500 mg PO Q12H PRN PRN Reason: mild pain Last Admin: 05/21/21 13:53 Dose: 500 mg Documented by: Nicotine (Nicotine 7 Mg Patch.Td24) 7 mg TRANSDERMA DAILY [facility] Last Admin: 05/24/21 08:10 Dose: 7 mg Documented by: Olanzapine (Olanzapine 2.5 Mg Tablet) 2.5 mg PO Q4H PRN PRN Reason: agitation, anxiety Last Admin: 05/22/21 10:40 Dose: 2.5 mg Documented by: Omeprazole (Omeprazole 20 Mg Capsule.) 20 mg PO DAILY@1630 [facility] Last Admin: 05/23/21 17:43 Dose: Not Given Documented by: Trazodone HCl (Trazodone Hcl 50 Mg Tablet) 50 mg PO BEDTIME PRN PRN Reason: Insomnia Last Admin: 05/12/21 00:49 Dose: 50 mg Documented by: Home Medications Medication Instructions Recorded Confirmed Last Taken Type doxepin 50 mg capsule 1 cap PO BEDTIME 05/10/21 05/10/21 Unknown History fluticasone propionate 50 2 spray INTRANASAL DAILY 05/10/21 05/10/21 Unknown History mcg/actuation nasal spray,suspension omeprazole 20 mg capsule,delayed 1 cap PO QPM 05/10/21 05/10/21 Unknown History release Physical Exam Vital Signs: Vital Signs: Last Vital Signs Temp 97.7 F 05/24/21 06:00 Pulse 69 05/24/21 06:00 Resp 17 05/24/21 06:00 BP 137/66 05/24/21 06:00 Pulse Ox 96 05/24/21 06:00 BMI result Body Mass Index 24.4 Const: General: cooperative Resp: Effort & Inspection: normal respiratory effort Cardio: Rate: regular rate Rhythm: regular rhythm GI: Palpation (GI): Soft to palpation and nontender Skin: Other: red macules bilateral legs and some face near nose,.5 cm Extrem: General: Yes normal to inspection Results Labs CBC & Chem 7: 05/10/21 19:11 05/12/21 07:59 Assessment and Plan (1) Rash: Status: Acute She has areas of macules on legs possible viral syndrome but more likely due to neurodermatitis Plan topical antiprurutic agents Check Hepatitis C and B and HIV
[2021-05-24 16:52] VITALS: BP 137/90; PULSE 82; RESP 20; TEMP 36; O2SAT 98
[2021-05-24] MEDS: Omeprazole 20 MG CAPSULE.DR PO (16:52)
[2021-05-24] MEDS: diphenhydrAMINE HCL 25 MG TABLET PO (20:34)
[2021-05-25 04:45] LABS: HIV AB/AG Nonreactive (Nonreactive); HIV Num 1 0.05 S/CO (0.00-0.99); ~Hepatitis C Antibody Nonreactive (Nonreactive)
[2021-05-25 04:50] LABS: HBsAGNum1 0.12 S/CO (0.00-0.99); Hepatitis B Surface Antigen Negative (Negative)
[2021-05-25 04:54] LABS: HBc Num1 0.14 S/CO (0.00-0.79); Hepatitis B Core Antibody Nonreactive (Nonreactive)
[2021-05-25 05:03] LABS: HBS Num1 0.05 mIU/mL (0-7.99); ~Hepatitis B Surface Antibody NONREACTIVE (Nonreactive)
[2021-05-25] MEDS: Fluticasone Propionate Nasal 16 GM SPRAY 2 SPRAY NOSTRIL-B (08:29)
[2021-05-25] MEDS: Escitalopram Oxalate 10 MG TABLET PO (08:30)
[2021-05-25] MEDS: Gabapentin 100 MG CAPSULE PO ×3 (08:30→20:31)
[2021-05-25] MEDS: LORazepam 0.5 MG TABLET PO ×3 (08:30→20:31)
[2021-05-25] MEDS: hydrOXYzine HCL 10 MG TABLET PO ×3 (08:30→20:31)
[2021-05-25] MEDS: Nicotine 7 MG PATCH.TD24 TRANSDERMA (08:31)
[2021-05-25] MEDS: Acetaminophen 325 MG TABLET 650 MG PO ×2 (08:33→21:34)
[2021-05-25 08:41] VITALS: BP 113/54; PULSE 76; RESP 15; TEMP 36.8; O2SAT 97
--- NOTE | 2021-05-25 08:54 | P.PNPSI_ITS ---
Subjective Subjective Date of Service: 05/26/21 Reason For Visit: SECCTION 14 (AGE UNKNOWN) Interim History: Pt has been visible on the unit, attending assigned groups. She reports sleeping through the night. She reports feeling less anxious, less overwhelmed. Some itchiness on scalp. She denied SI/HI. 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, headache GI: No c/o Nausea, Vomiting, diarrhea, constipation or heartburn Yes all other systems are reviewed and are negative Constitutional: Reports no additional constitutional complaints Eyes: Reports no additional eye complaints Denies dizziness Cardiovascular: Reports no additional cardiovascular complaints Respiratory: Reports as per HPI Gastrointestinal: Reports no additional gastrointestinal complaints Musculoskeletal: Reports no additional musculoskeletal complaints Skin/Breast: Denies rash Reports system reviewed and no additional complaints, except as documented, Denies dizziness and Denies Sensory deficit (Neuro) Psychiatric: Denies anxiety Mental Status Exam Mental Status Exam Narrative: A&O. In hospital attire, unkempt appearance, bandaid on face. Good eye contact, attentive. No Tics or Tremors. No abnormal involuntary movements. Calm, cooperative, engaged. Speech is somewhat pressured, talkative, spontaneous, normal volume and prosody. No prolonged speech latency or dysarthria. Mood is ?frustrated,? affect is anxious. Denies SI/SIB/HI upon inquiry. Denies A/VH or delusional thought content. Thoughts are preoccupied on itching. No known cognitive or memory impairment. Insight/ Judgment fair and adequate. Diagnostics Vital Signs (24Hr): Vital Signs - 24 hr 05/25/21 18:00 Temperature 98.2 F Pulse Rate 77 Respiratory Rate 18 Blood Pressure 128/64 Pulse Oximetry 97 BMI result Body Mass Index 24.4 Labs Results: 05/10/21 19:11 05/12/21 07:59 Labs: Laboratory Results - last 48 hr 05/24/21 05/24/21 05/24/21 13:44 13:44 13:44 Hep Bs Antigen Negative Hep Bs Antibody NONREACTIVE Hep B Core Total Ab Nonreactive Hepatitis C Ab (EIA) HIV 1&2 Ab/P24 Ag 4thGn 05/24/21 05/24/21 13:44 13:44 Hep Bs Antigen Hep Bs Antibody Hep B Core Total Ab Hepatitis C Ab (EIA) Nonreactive HIV 1&2 Ab/P24 Ag 4thGn Nonreactive Medications Medications Current Medications Acetaminophen (Acetaminophen 325 Mg Tablet) 650 mg PO Q6H PRN PRN Reason: Headache/Pain Mild Scale (1-3) Last Admin: 05/26/21 08:26 Dose: 650 mg Documented by: Al Hydroxide/Mg Hydroxide (Magnesium Hydrox/Alum Hydrox 30 Ml Oral.Susp) 30 ml PO Q6H PRN PRN Reason: Heartburn/Nausea Diphenhydramine HCl (Diphenhydramine Hcl 25 Mg Tablet) 25 mg PO Q4H PRN PRN Reason: Allergic Reaction Last Admin: 05/25/21 12:27 Dose: 25 mg Documented by: Docusate Sodium (Docusate Sodium 100 Mg Capsule) 100 mg PO BID PRN PRN Reason: Constipation Last Admin: 05/18/21 08:29 Dose: 100 mg Documented by: Escitalopram Oxalate (Escitalopram Oxalate 10 Mg Tablet) 10 mg PO DAILY [facility] Last Admin: 05/26/21 08:27 Dose: 10 mg Documented by: Fluticasone Propionate (Fluticasone Propionate Nasal 16 Gm [place]) 2 spray NOSTRIL-B DAILY [facility] Last Admin: 05/26/21 08:33 Dose: Not Given Documented by: Gabapentin (Gabapentin 100 Mg Capsule) 100 mg PO TID [facility] Last Admin: 05/26/21 08:23 Dose: 100 mg Documented by: Hydrocortisone (Hydrocortisone 1 % Cream 28.35 Gm Tube) 1 appl TOPICAL TID PRN PRN Reason: itching Last Admin: 05/22/21 21:18 Dose: 1 appl Documented by: Hydroxyzine HCl (Hydroxyzine Hcl 25 Mg Tablet) 25 mg PO Q6H PRN PRN Reason: itching Last Admin: 05/25/21 15:36 Dose: 25 mg Documented by: Hydroxyzine HCl (Hydroxyzine Hcl 10 Mg Tablet) 10 mg PO TID [facility] Last Admin: 05/26/21 08:27 Dose: 10 mg Documented by: Lorazepam (Lorazepam 0.5 Mg Tablet) 0.5 mg PO TID [facility] Last Admin: 05/26/21 08:26 Dose: 0.5 mg Documented by: Magnesium Hydroxide (Milk Of Magnesia 30 Ml Oral.Susp) 30 ml PO DAILY PRN PRN Reason: Constipation Last Admin: 05/18/21 08:28 Dose: 30 ml Documented by: Naproxen (Naproxen 500 Mg Tablet) 500 mg PO Q12H PRN PRN Reason: mild pain Last Admin: 05/21/21 13:53 Dose: 500 mg Documented by: Nicotine (Nicotine 7 Mg Patch.Td24) 7 mg TRANSDERMA DAILY [facility] Last Admin: 05/26/21 08:27 Dose: 7 mg Documented by: Olanzapine (Olanzapine 2.5 Mg Tablet) 2.5 mg PO Q4H PRN PRN Reason: agitation, anxiety Last Admin: 05/22/21 10:40 Dose: 2.5 mg Documented by: Omeprazole (Omeprazole 20 Mg Capsule.Dr) 20 mg PO DAILY@1630 [facility] Last Admin: 05/25/21 15:36 Dose: 20 mg Documented by: Trazodone HCl (Trazodone Hcl 50 Mg Tablet) 50 mg PO BEDTIME PRN PRN Reason: Insomnia Last Admin: 05/12/21 00:49 Dose: 50 mg Documented by: Allergies Allergies Allergy/AdvReac Type Severity Reaction Status Date / Time [id number] Reductase AdvReac Muscle Verified 05/10/21 18:31 Inhibitor cramps Assessment & Plan Assessment & Plan (1) MDD (major depressive disorder), recurrent episode, moderate: Status: Acute Code(s): F33.1 - Major depressive disorder, recurrent, moderate Plan RASH: topical antiprurutic agents, Check Hepatitis C and B and HIV psych: continue current medications. I spent minutes with the patient and/or on the patient floor today, greater than?50% of which was spent counseling/coordinating care. Reason for contiued inpatient stay Substantial Risk for: stable for discharge
[2021-05-25] MEDS: diphenhydrAMINE HCL 25 MG TABLET PO (12:27)
[2021-05-25] MEDS: Omeprazole 20 MG CAPSULE.DR PO (15:36)
[2021-05-25] MEDS: hydrOXYzine HCL 25 MG TABLET PO (15:36)
[2021-05-25 18:00] VITALS: BP 128/64; PULSE 77; RESP 18; TEMP 36.8; O2SAT 97
[2021-05-26 08:00] VITALS: BP 117/66; PULSE 72; RESP 14; TEMP 36.6; O2SAT 99
[2021-05-26] MEDS: Gabapentin 100 MG CAPSULE PO (08:23)
[2021-05-26] MEDS: Acetaminophen 325 MG TABLET 650 MG PO (08:26)
[2021-05-26] MEDS: LORazepam 0.5 MG TABLET PO (08:26)
[2021-05-26] MEDS: Escitalopram Oxalate 10 MG TABLET PO (08:27)
[2021-05-26] MEDS: hydrOXYzine HCL 10 MG TABLET PO (08:27)
[2021-05-26] MEDS: Nicotine 7 MG PATCH.TD24 TRANSDERMA (08:27)
--- NOTE | 2021-05-26 09:16 | P.DS_ITS ---
DS: Providers Provider Date of Service: 05/26/21 Date of admission: 05/11/21 16:32 Primary care physician: Anita Menchaca MD Consults: 05/12/21 15:17 Consult to Neurology Routine Consulting Provider: [facility] Reason for consultation: bugs crawling sensation on face ?trigeminal/ pin rolling tremor ?parkinsons Has provider been notified: Yes 05/24/21 10:45 Consult to Infectious Diseases Routine Consulting Provider: Aparna Vogel Reason for consultation: rash-?scabies Has provider been notified: Yes DS: Diagnosis Discharge Diagnosis (1) MDD (major depressive disorder), recurrent episode, moderate: Status: Acute DS: Medications Discharge Medications Home Medications: Home Medications Medication Instructions Recorded Confirmed fluticasone propionate 50 2 spray INTRANASAL DAILY 05/10/21 05/10/21 mcg/actuation nasal spray,suspension omeprazole 20 mg capsule,delayed 1 cap PO QPM 05/10/21 05/10/21 release Previous Rx's Medication Instructions Recorded acetaminophen 325 mg tablet 650 mg PO Q6H PRN #30 tab 05/26/21 diphenhydramine HCl 25 mg tablet 25 mg PO Q4H PRN #90 tab 05/26/21 (Allergy Relief (diphenhydramine)) escitalopram oxalate 10 mg tablet 10 mg PO DAILY #30 tab 05/26/21 gabapentin 100 mg capsule 100 mg PO TID #90 cap 05/26/21 hydrocortisone 1 % topical cream 1 appl TOPICAL TID PRN #28.35 g 05/26/21 hydroxyzine HCl 10 mg tablet 10 mg PO TID #90 tab 05/26/21 nicotine 7 mg/24 hr daily 7 mg TRANSDERMAL DAILY #15 ea 05/26/21 transdermal patch Mental Status Exam Mental Status Exam Narrative: A&O x 3. . Casually groomed, good hygiene, well-kept appearance, bandaid on face. Good eye contact, attentive. No Tics or Tremors. No abnormal involuntary movements. Calm, cooperative, engaged. Speech is somewhat pressured, talkative, spontaneous, normal volume and prosody. No prolonged speech latency or dysarthria. Mood is ?better,? affect is congruent, brighter, non labile. Denies SI/SIB/HI upon inquiry. Denies A/VH or delusional thought content. Thoughts are preoccupied on itching. Insight/ Judgment fair and adequate. Memory/cog: grossly intact to conversational testing but not formally tested. Data Data Completed and Pending Completed studies during hospitalization [Text1]: 05/24/21 05/24/21 05/24/21 13:44 13:44 13:44 Hep Bs Antigen Negative Hep Bs Antibody NONREACTIVE Hep B Core Total Ab Nonreactive Hepatitis C Ab (EIA) HIV 1&2 Ab/P24 Ag 4thGn 05/24/21 05/24/21 13:44 13:44 Hep Bs Antigen Hep Bs Antibody Hep B Core Total Ab Hepatitis C Ab (EIA) Nonreactive HIV 1&2 Ab/P24 Ag 4thGn Nonreactive DS: Summary Hospital Course Hospital Course: Milana is a 70 y.o. Female who carries a dx of MDD recurrent, and SERGIO. She self- presented to [facility] on 05/10 due to SI with a plan to throw herself off of a bridge. She attributes this to feeling itchy, pruritic skin that has been unresponsive to medication/ treatment x 2 yrs and thus has been unable to sleep. 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 Appetite is poor. Stressors include feeling isolated in the context of COVID-19 pandemic.? 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 Says she has been scratching her face, has a bandaid on her face, feels like there are ?bugs landing on me.?? Of note, a year ago pt reports she had a black spider bite on her face and ?for six months you could see the fang diehl.? Per pt, pruritus is so tormenting that ?if i have this another month I'm gonna jump off a bridge.? Pt says she thinks her itching has to do with being a ?very high energy, anxious? person and that since the start of the pandemic she has had ?nothing to do? and she now has ?energy stored up? with nowhere to go, making her itch. 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 She denies feeling depressed but says ?I dont feel myself? and feels ?frustrated.? She denies hx of hyposomnia, on a ?Im a pretty good sleeper usually.? Pt is talkative but denies racing thoughts. Able to attend to most self care/ ADLs, but has not been cooking, ?its hard to when you?re itching.? Hasnt been able to see a construction supervisor, being treated by PCP. Pt explains she had a previous bout of neurodermatitis 20 years ago after going through menopause and she was given paxil and hydroxyzine, which helped. She retried paxil with her PCP and says she was ?feeling good until my arms and back had a blistering itch,? which was attributed to the paxil. She then trialed Zoloft and doxepin, however says both made her feel dizzy. Says hydoxyzine lost efficacy over time but she has found some benefit on benadryl 25 mg at bedtime. She was able to sleep through the night on zyprexa 2.5 mg, prescribed in the ED BH pod. Also asks for topical Hydrocortisone. Past Psychiatric History: -Hx of IPLOC in 1998 at [facility]. Per pt, she has a hx of ?clinical depression? and had two previous episodes, last was when she was menopausal, prior to that in the 1980s after a break up from her fiance. -Hx of previous crisis eval in 2020 due to making passive SI statements due to pruritus, pain. -Past med trials: paxil (initially helpful but says she had a skin reaction), zoloft (dizzy), doxepin (dizzy), ativan (lack of efficacy), hydroxyzine (says lost efficacy over time). Medical Evaluation Reviewed: Yes HOSPITAL COURSE On the unit, Ms. Reynolds was admitted on a CV and placed on 15 minutes checks for safety. On the unit, Ms. Reynolds reported that suicidal ideation related to ongoing pruritus with limited to no relief with current interventions from multiple specialist inckuding dematologist, allergy specially. Such sensation on skin were not deemed as hallucination and patient did have outbreaks of rash on both upper extremities and lower extremities. Ms. Reynolds was seen by neurologist to rule out neuropathy. Neurology recommended gabapentin, which pt had been on it in past but agreed to retry. After reviewing risks, benefits and alternative treatment options, pt agreed to start ativan for anxiety, which pt reported was very beneficial. She was started on lexapro for depression, which was titrated to 10mg po daily. Combination of ativan, gabapentin, antihistamines seem to significantly improved her mood and to some extend physical symptoms. Ms. Reynolds was gradually visible, attended assigned groups. She was eating and sleeping well. She denied suicidal or homicidal ideation. She did not appear internally preoccupied. No delusional content reported, and again itchiness and pin needle sensation NOT deemed as tactile hallucination or somatic delusion. There were no incidences of disruptive behaviors nor use of restraints. Status at Discharge Cognitive/behavioral status at discharge: Pt with brighter affect. Non labile. No SI/HI. No VH/AH. Sleeping and eating well. Future oriented as evidenced by looking forward to return home with family. No signs of aggression towards self or others. Functional status at discharge: independent ambulation Overall status at discharge: patient is progressing back to baseline Time Spent with Patient Time attestation: Total time spent providing and/or coordinating discharge services: Discharge Plan Discharge Patient Disposition: Home, Self-Care Discharge Diagnosis: MDD, recurrent, moderate Referrals: [facility] [Other] - 06/19/21 12:30 pm (Appt scheduled for June 19, 2021 @ 12:30 PM TELEHEALTH with Dez Macdonald) Anita Menchaca MD [Primary Care Provider] - 06/20/21 10:30 am () Discharge Medications: New acetaminophen 325 mg Tablet 650 mg PO Q6H PRN (Reason: Headache/Pain Mild Scale (1-3)) Qty: 30 0RF hydrocortisone 1 % Cream 1 appl topical TID PRN (Reason: itching) Qty: 28.35 0RF diphenhydramine HCl [Allergy Relief(diphenhydramin)] 25 mg Tablet 25 mg PO Q4H PRN (Reason: Allergic Reaction) Qty: 90 0RF gabapentin 100 mg Capsule 100 mg PO TID Qty: 90 0RF hydroxyzine HCl 10 mg Tablet 10 mg PO TID Qty: 90 0RF nicotine 7 mg/24 hr Patch 24 Hour 7 mg transdermal DAILY Qty: 15 0RF escitalopram oxalate 10 mg Tablet 10 mg PO DAILY Qty: 30 0RF hydroxyzine HCl 25 mg Tablet 25 mg PO Q6H PRN (Reason: itching) Qty: 90 0RF Continued omeprazole 20 mg capsule,delayed release(DR/EC) 1 cap PO QPM 0RF fluticasone propionate 50 mcg/actuation spray,suspension 2 spray intranasal DAILY 0RF Discontinued doxepin 50 mg capsule 1 cap PO BEDTIME 0RF Discharge Orders: Discharge Order (Routine); Ordered 05/26/21 Ordered By: Hailey Bowie Diet: regular diet Activity on Discharge: As tolerated Stand Alone Forms: Patient Portal Discharge page, Community Support Care Plan Goals: 1. maintain mood 2. no si/hi Health Concerns: follow up with specialist Plan of Treatment: take medications as prescribed go to nearest ed or call 911 in event of emergency Assessment: Pt with bright affect, non labile. No SI/HI. No signs of psychosis. future oriented. Discharge Date/Time: 05/26/21 13:33
--- NOTE | 2021-05-26 13:38 | PC.NURSE ---
Patient was aware and ready for discharge. Paperwork reviewed with patient . Next dose medications and follow up appointment explained to patient. Patient verbalized understanding. Patient was accompanied with belongings to the front of the building per hospital policy.
== END 2021-05-26 13:33 | disposition home or self-care (01) | DRG 885 ==
LOC: HO.ED 05-11 09:38 → HO.PGERI 05-11 16:34
PROVIDERS: Internal Medicine; Admitting Provider Psychiatry & Neurology Psychiatry; Emergency Provider Emergency Medicine; PCP Internal Medicine; Visit Provider Social Worker
DX: F33.1 Major depressive disorder, recurrent, moderate (principal); R45.851 Suicidal ideations; R44.2 Other hallucinations; F41.1 Generalized anxiety disorder; R20.2 Paresthesia of skin; M19.90 Unspecified osteoarthritis, unspecified site; K21.9 Gastro-esophageal reflux disease without esophagitis; Z20.822 Contact with and (suspected) exposure to COVID-19; F17.210 Nicotine dependence, cigarettes, uncomplicated; Z71.6 Tobacco abuse counseling; Z88.8 Allergy status to other drugs, medicaments and biological substances; Z79.51 Long term (current) use of inhaled steroids; Z79.899 Other long term (current) drug therapy
CPT/HCPCS: 36415; 80053; 80061; 80143; 80179; 80307; 81001; 82077; 82607; 82746; 83036; 84443; 85025; 86704; 86706; 86803; 87340; 87389; 87635; 93005; 99285; Q0163